=== PATIENT | female | born 1960 | race Caucasian/White ===

== ENCOUNTER → 2019-09-30 18:59 | Outpatient (CLI) | payer MEDICAID, SELFPAY ==
[2019-09-30 19:09] LABS: Basophils % 0.4 % (0.1-2.0); Eosinophils # 0.2 K/mm3 (0.0-0.4); Eosinophils % 1.6 % (0.1-12.0); Hematocrit 42.5 % (37.0-47.0); Hemoglobin 14.3 g/dL (12.2-16.2); Lymphocytes # 3.3 K/mm3 (0.7-4.5); Lymphocytes % 34.5 % (10-50); Mean Corpuscular HGB Conc 33.6 g/dL (31.8-35.4); Mean Corpuscular Hemoglobin 34.5 pg (27.0-31.2); Mean Corpuscular Volume 102.6 fl (81-99); Mean Platelet Volume 9.1 fl (7.4-10.4); Monocytes # 0.6 K/mm3 (0.1-1.0); Monocytes % 5.8 % (1.7-9.3); Neutrophils # 5.4 K/mm3 (1.8-7.8); Neutrophils % 57.7 % (37.0-80.0); Platelet Count 388 K/mm3 (142-424); Red Blood Count 4.14 M/mm3 (4.20-5.40); Red Cell Distribution Width 13.4 % (11.5-17.5); White Blood Count 9.4 K/mm3 (4.8-10.8)
[2019-09-30 19:13] LABS: Alanine Aminotransferase 26 U/L (12-78); Albumin Level 4.3 g/dl (3.5-5.0); Albumin/Globulin Ratio 1.6 (1.1-1.8); Alkaline Phosphatase 113 U/L (38-126); Anion Gap 12.7 mEq/L (5-15); Aspartate Amino Transferase 45 U/L (14-36); Bilirubin,Total 0.4 mg/dl (0.2-1.3); Blood Urea Nitrogen 17 mg/dl (7-17); Calcium 10.1 mg/dl (8.4-10.2); Carbon Dioxide 28 mmol/L (22.0-30.0); Chloride 101 mmol/L (98-107); Chol/HDL Ratio 2.1 (1-3.5); Cholesterol 218 mg/dl (140-200); Estimated Glomerular Filt Rate 73 ml/min (>60); GFR (African American) 89 ML/MIN (>60); Globulin 2.7 g/dL (1.3-3.2); Glucose 96 mg/dl (74-100); HDL Cholesterol 104 mg/dl (40-60); Potassium 4.7 mmoL/L (3.5-5.1); Sodium 137 mmol/L (136-145); Triglycerides 239 mg/dl (30-150); VLDL Cholesterol 48 mg/dL (0-40)
[2019-09-30 19:24] LABS: Direct LDL Cholesterol 98.73 mg/dL (100-129)
[2019-09-30 19:30] LABS: T4 (Thyroxine) 6.2 ug/dl (5.53-11.0)
[2019-09-30 19:44] LABS: Thyroid Stimulating Hormone 0.45 uIU/mL (0.465-4.68)
[2019-10-11 18:47] LABS: 1,25 Dihydroxy Vitamin D 94 pg/mL (.); 1,25-Dihydroxy, Vitamin D-2 13 pg/mL (.); 1,25-Dihydroxy, Vitamin D-3 81 pg/mL (.)
== END ==
PROVIDERS: Visit Provider Nurse Practitioner Family
DX: I10 Essential (primary) hypertension (principal); R53.83 Other fatigue; E67.3 Hypervitaminosis D; Z79.899 Other long term (current) drug therapy
CPT/HCPCS: 80053; 80061; 82652; 84436; 84443; 85025

== ENCOUNTER → 2020-01-25 09:39 | Outpatient (CLI) | payer MEDICAID, SELFPAY ==
[2020-01-25 12:42] LABS: Coronavirus 19 IgG Antibody Negative (Negative); Coronavirus 19 IgM Antibody Negative (Negative)
== END ==
PROVIDERS: Visit Provider Surgery
DX: Z01.818 Encounter for other preprocedural examination (principal); Z03.818 Encounter for observation for suspected exposure to other biological agents ruled out; Z12.11 Encounter for screening for malignant neoplasm of colon; Z86.010 Personal history of colon polyps
CPT/HCPCS: 36415; 86328

== ENCOUNTER 2020-01-26 09:30 | Day surgery (SDC) | payer MEDICAID, SELFPAY ==
[2020-01-26 09:46] VITALS: BP 136/65; PULSE 69; RESP 18; TEMP 36.6; O2SAT 100
--- NOTE | 2020-01-26 10:38 | HMH.ANESCL ---
[facility] Anesthesia Checklist - Patient Identification Patient Identification: Arm Band, Verbal (Name & ) - Structural Data Admitted From: Home Planned Operative Procedure/s: colon Consent for Planned Operative Procedure(s) Verified: Yes Verified Documents: History and Physical - NPO Status Verified Time NPO: 00:00 - Chart Verification Results Verified: CBC, BMP - Additional verifications Patient : No Anesthesia Reactions: No Hx Blood Transfusions: No Blood Transfusion Reaction: No Cephalosporin Allergy: No Previous Colonoscopy: Yes - Cardiovascular Assessment Heart Sounds: S1 & S2 Pulse Strength: Baseline Pulse Rhythm: Regular Peripheral Edema: No - Airway Assessment C-Spine Mobility Assessed: Yes TMJ Mobility Assessed: Yes Dentition: Dentures-good fit - Neurological Assessment Level of Consciousness: Awake, Alert, Appropriate Hx Seizures: No Numbness or tingling in extremities: No - Anesthesia Plan Anesthesia Risk discussed: Yes Anesthesia Plan: Verified ASA Class: III Anesthesia Type: General [facility] History I have reviewed the patient's past medical history: Yes Medical History: Reports:: Cancer (breast right 2006), Depression, Hyperlipidemia, Hypertension Denies:: Diabetes Mellitus Type 1, Diabetes Mellitus Type 2, Internal Pacemaker, MRSA, Seizures *Have you ever received a pneumonia vaccine?: No *Have you received a flu vaccine this season?: No Anesthesia experience/problems:: none Laterality Cases: Right: Arthroscopy Shoulder, Lumpectomy Other Surgeries: Yes: Appendectomy, Colonoscopy, Tubal Ligation, Other. No: Pacemaker Amputation: No Fractures: No - *Social History Smoking Status: Current some day smoker Tobacco Type: cigarettes, e-cigarettes # Packs/Day (cigarettes): 1 Alcohol Intake: never Alcohol Intake Frequency:: holidays/special occasions only Substance Use Type: denies use *Occupational Status:: employed Household Members: spouse *Travel in the last 8 weeks: None - Psychiatric History Pschychiatric History:: Reports:: Depression Family Hx:: Non-contributory
[2020-01-26 10:43] VITALS: O2SAT 100
[2020-01-26 12:16] VITALS: BP 156/85; PULSE 71; RESP 18; TEMP 36.1; O2SAT 100
--- NOTE | 2020-01-26 12:17 | HMH.SCOPE ---
- Procedure: Date: 01/26/20 Patient Date of :: 1960 Procedure Performed:: Total colonoscopy with numerous polypectomy Indications:: Patient is a 59-year-old female referred by Selvin Moran for screening colonoscopy. She did have a colonoscopy done about 15 years ago in [facility]. She does state that she had polyps. She has no issues. She does state that her aunt of colon cancer. Performing Provider:: Nelson Rene MD Referring Provider:: Tonia Moran Sedation:: MAC sedation Procedure:: Patient was taken to the endoscopy procedure room. She was positioned in a lateral decubitus position. Adequate intravenous sedation was achieved with anesthesia titration of propofol. Variable stiffness Olympus colonoscope was inserted via the anus. With some difficulty due to angulation and tortuosity of the sigmoid colon the colonoscope was ultimately advanced to the cecum and the cecum was cannulated. Ileocecal valve was clearly identified. Colonoscope was slowly withdrawn through the colon with careful surveillance. Numerous polyps were encountered. Much of these were sessile ridge polyps consistent with possible serrated adenomas. Please see findings below for details. Retroflexion within the rectum revealed internal anal papillae but no pathologic internal hemorrhoids. Colonoscope was withdrawn. Please note total procedure time 1 hour 25 minutes from insertion to withdrawal of the colonoscope Findings:: Ascending colon polyp removed with cold cutting snare, not retrieved Hepatic flexure polyp x2 removed with cold cutting snare Proximal transverse colon polyp removed with biopsy Transverse colon polyp x4 removed with cold cutting snare Descending colon polyp x2 required injection of submucosal methylene blue and removal with cold cutting snare Proximal sigmoid polyp x2 removed with cold cutting snare Mid sigmoid polyp removed with cold biopsy forceps Distal sigmoid colon polyp x2 removed with cold cutting snare Distal rectosigmoid colon polyps removed by snare, several not retrieved Rectal polyp x3 removed with cold snare She had a total of greater than 20 polyps removed. A few of these were unable to be retrieved due to the large number of polyps and anatomy. Recommendations:: Pending the pathology likely repeat colonoscopy in 1 year Complications:: None immediately apparent Estimated blood obtained (mL): 3
[2020-01-26 12:26] VITALS: BP 144/82; PULSE 70; RESP 18; O2SAT 98
[2020-01-26 12:40] VITALS: BP 142/79; PULSE 71; RESP 18; O2SAT 95
[2020-01-26 12:50] VITALS: BP 156/90; PULSE 67; RESP 18; O2SAT 98
== END 2020-01-26 12:53 | disposition home or self-care (01) ==
LOC: OUTP 09:31
PROVIDERS: PCP Nurse Practitioner Family; Visit Provider Surgery
PROC: 0DJD8ZZ Inspection of Lower Intestinal Tract, Via Natural or Artificial Opening Endoscopic (ICD-10-PCS; CPT 45385; principal; 2020-01-26 10:30)
DX: Z12.11 Encounter for screening for malignant neoplasm of colon (principal); Z86.010 Personal history of colon polyps; K63.5 Polyp of colon; K56.2 Volvulus; Z85.3 Personal history of malignant neoplasm of breast; I10 Essential (primary) hypertension; E78.5 Hyperlipidemia, unspecified; F32.9 Major depressive disorder, single episode, unspecified; Z90.49 Acquired absence of other specified parts of digestive tract; Z72.0 Tobacco use; Z88.0 Allergy status to penicillin; Z79.899 Other long term (current) drug therapy
CPT/HCPCS: 45385; 45380

== ENCOUNTER → 2020-04-26 07:15 | Outpatient (CLI) | payer OTHER, SELFPAY ==
--- NOTE | 2020-04-26 | CA_ITS ---
APPROVED REPORT Exam: Pharmacologic Technologist: Catalina Qiu, Ht: 5 ft 4 in Wt: 156 lbs BSA: 1.76 m2 HR: 75 bpm BP: 137/74 mmHg Indications: Shortness of Air, chest pain Medical History Medications: Amlodipine,,,,, Metoprolol,,,,, FluTICASONE,,,,, Trazodone,,,,, CetIRIZINE,,,,, Stress Test Details Test: LEXISCAN HR Resting HR: 80 bpm Max Heart Rate (APMHR): 161.058931 bpm Max HR Achieved: 90 bpm Target HR (85% APMHR): 136.586746 bpm % of APMHR: 55.90 Recovery HR: 80 bpm BP Resting BP: 137/74 mmHg Max BP: 137/74 mmHg Recovery BP: 104.0/67.0 mmHg ECG Clinical Reason for Termination: Completed protocol Exercise duration: 04:00 min Highest Stage Achieved: Exercise capacity: 1.0 METs Stress ECG Conclusion Symptom - SOA, Malaise and no chest pain. NO arrhythmias. No significant ST -T changes. Conclusion - Unremarkable Lexiscan stress. and myoview images reported separately. Electronically signed by : Jose Bryan, 04/26/2020 19:44:58
--- NOTE | 2020-04-26 07:16 | CA_ITS ---
APPROVED REPORT EXAM: Comprehensive 2D, Doppler, and color-flow Echocardiogram Insurance Verifier: Tiesha Suggs, RT(R) Ht: 5 ft 4 in Wt: 156lbs BSA: 1.76 BP: 112/74 mmHg Indications: SOA, CP, smoker, HTN, family history of HD, hx malignant breast ca 2D Dimensions LVOT 1.90 cm (M/F) 1.5-2.5 M-Mode Dimensions RVDd 2.50 cm (0.9-2.6) LA Diam 3.70 cm (1.9-4.0) LVDd 5.10 cm (3.5-5.7) Ao Diam 2.70 cm (2.0-3.7) LVDs 3.30 cm (3.5-5.7) AV Cusp 1.70 cm (1.5-2.6) IVSd 0.80 cm (0.6-1.1) PWd 1.00 cm (0.6-1.1) EF (Teich) 64.40% FS 35.30% EDV (Teich) 124.00 mL ESV (Teich) 44.10 mL LV Diastology E/A Ratio 1.2 MED E' 8.58 (< 7 cm/sec) E'/MED E' Ratio 13.20 (>14) LAT E' 9.75 (<10 cm/sec) E/LAT E' Ratio 11.60 (>14) Mitral Valve MV E Max Madan. 113.00 (40-130 cm/s) MV A Velocity 94.30 (40-130 cm/s) E/A Ratio 1.20 Tricuspid Valve TR P. Velocity 247.00 cm/s RAP Estimate 10.00 mmHg RVSP 34.00 mmHg Left Ventricle Left atrium is normal size, left ventricle is normal size, there is no concentric left ventricular hypertrophy, visually estimated ejection fraction 55% with no regional wall motion abnormality, diastolic parameters are within normal range. Right Ventricle Right atrium and right ventricle are normal size and contractility. Aortic Valve Aortic valve is minimally thickened and fibrosed, there is no aortic stenosis or aortic insufficiency. Mitral Valve Mitral valve is grossly normal, there is trace mitral regurgitation. Tricuspid Valve Tricuspid grossly normal, there is trace tricuspid regurgitation. Pulmonic Valve Pulmonic valve is poorly visualized. Great Vessels Aortic root is normal size. Pericardium No significant pericardial effusion noted. Conclusion 1. Normal left ventricular size, preserved left ventricular systolic function, visually estimated ejection fraction 55% with no regional wall motion abnormality, diastolic parameters are within normal range. 2. Trace mitral and tricuspid regurgitation. 3. No significant pericardial effusion noted. Electronically signed by : Jose Bryan, 04/26/2020 21:47:53
--- NOTE | 2020-04-26 07:21 | NM_ITS ---
APPROVED REPORT Exam: Nuclear Stress Test Indication: Chest pain, HTN, Tobacco use, Family history Patient Location: Outpatient Stress Tech: Catalina Qiu NM Tech:Jing Arango, ARRT, RT (R)(N) Ht: 5 ft 4 in Wt: 156 lbs Bra Size: 36B HR: 75 bpm BP: 137/74 mmHg BSA: 1.76 m2 BMI: 26.7 History: Chest pain, HTN, Tobacco use, Family history Procedure: Patient received a 0.4 mg of intravenous Lexiscan, resting heart rate 75 bpm, resting blood pressure 137/74 mmHg, with Lexiscan maximum heart rate achived was 90 bpm which is Less than 85 % of the maximum predicted heart rate and blood pressure was 108/73 mmHg. With Lexiscan, patient denied any complaint of chest pain. Electrocardiogram Resting electrocardiogram showed sinus rhythm, with Lexiscan there is less than 1.[address] segment depression noted from the baseline EKG. The EKG portion of the Lexiscan is nondiagnostic. Cardiac Stress and Resting SPECT Images: Cardiac Stress and Resting SPECT images were obtained using technetium 99m Myoview 30.0 mCi stress and 10.58 mCi at rest. Gated SPECT for analysis of segmental wall motion and calculation of the ejection fraction also done. Prone images were also obtained. Cardiac stress and resting SPECT images show uniform myocardial activity without segmental perfusion abnormality, computer derived ejection fraction is over 65% with no regional wall motion abnormality, right ventricle is normal size and contractility. Conclusion: 1. The EKG portion of the Lexiscan is nondiagnostic. 2. No scintigraphic evidence of reversible ischemia seen, computer derived ejection fraction is over 65% with no regional wall motion abnormality, right ventricle is normal size and contractility. 3. Normal Lexiscan Myoview study. Electronically signed by : Jose Bryan, 04/26/2020 19:54:46
--- NOTE | 2020-04-26 08:58 | HMH.ITSHM ---
Current Home Medications as stated by this patient Ana Vazquez or congressional representative. []METOPROLOL AMLODIPINE CETIRIZINE TRAZODONE
== END ==
PROVIDERS: PCP Nurse Practitioner Family; Visit Provider Nurse Practitioner Family
DX: R07.9 Chest pain, unspecified (principal)
CPT/HCPCS: 78452; 93017; 93306; A9502; J2785

== ENCOUNTER → 2021-11-20 12:14 | Outpatient (CLI) | payer BC, SELFPAY ==
--- NOTE | 2021-11-20 12:22 | XR_ITS ---
FINAL REPORT CLINICAL HISTORY: low back pain. no recent trauma/fall FINDINGS: LUMBAR SPINE Three views were obtained. There is no acute fracture. There is no malalignment. There are mild degenerative changes with osteophytes. There are mild vascular calcifications. IMPRESSION: Mild degenerative change with no acute bony abnormality. Reviewed, Interpreted and Dictated by Nelson Lobo III, MD Transcribed by Selina Greene Authenticated and . [facility]
== END ==
PROVIDERS: PCP Emergency Medicine; Visit Provider Student in an Organized Health Care Education/Training Program
DX: M54.50 Low back pain, unspecified (principal)
CPT/HCPCS: 72100

== ENCOUNTER 2021-12-06 15:30 | Outpatient (RCR) | payer BC, SELFPAY | END 2021-12-06 15:35 | disposition home or self-care (01) | LOC: PT 15:30 | PROVIDERS: PCP Emergency Medicine; Visit Provider Student in an Organized Health Care Education/Training Program | DX: M54.50 Low back pain, unspecified (principal); M54.2 Cervicalgia | CPT/HCPCS: 97010; 97014; 97110; 97163; G0283 ==

== ENCOUNTER → 2021-12-07 14:23 | Outpatient (CLI) | payer BC, SELFPAY ==
[2021-12-07 18:06] LABS: Alanine Aminotransferase 20 U/L (12-78); Albumin Level 4.2 g/dl (3.5-5.0); Albumin/Globulin Ratio 1.8 (1.1-1.8); Alkaline Phosphatase 86 U/L (38-126); Anion Gap 17.2 mEq/L (5-15); Aspartate Amino Transferase 39 U/L (14-36); Bilirubin,Total 0.4 mg/dl (0.2-1.3); Blood Urea Nitrogen 11 mg/dl (7-17); Calcium 9.2 mg/dl (8.4-10.2); Carbon Dioxide 22 mmol/L (22.0-30.0); Chloride 102 mmol/L (98-107); Cholesterol 239 mg/dl (140-200); Estimated Glomerular Filt Rate 125 ml/min (>60); GFR (African American) 152 ML/MIN (>60); Globulin 2.4 g/dL (1.3-3.2); Glucose 82 mg/dl (74-100); HDL Cholesterol 79 mg/dl (40-60); Potassium 4.2 mmoL/L (3.5-5.1); Sodium 137 mmol/L (136-145); Total Protein,Serum 6.6 g/dl (6.3-8.2); Triglycerides 102 mg/dl (30-150); VLDL Cholesterol 20 mg/dL (0-40)
[2021-12-07 18:17] LABS: Direct LDL Cholesterol 128.89 mg/dL (100-129)
[2021-12-07 18:24] LABS: 25-OH Vitamin D, Total < 12.8 ng/mL (30-100)
[2021-12-07 18:27] LABS: Basophils # 0.1 K/mm3 (0-0.2); Basophils % 1.2 % (0.1-2.0); Eosinophils # 0.1 K/mm3 (0.0-0.4); Eosinophils % 1.2 % (0.1-12.0); Hematocrit 44.5 % (37.0-47.0); Hemoglobin 14.4 g/dL (12.2-16.2); Lymphocytes # 2.6 K/mm3 (0.7-4.5); Lymphocytes % 34.1 % (10-50); Mean Corpuscular HGB Conc 32.4 g/dL (31.8-35.4); Mean Corpuscular Hemoglobin 33.3 pg (27.0-31.2); Mean Corpuscular Volume 102.7 fl (81-99); Mean Platelet Volume 9.1 fl (7.4-10.4); Monocytes # 0.5 K/mm3 (0.1-1.0); Monocytes % 6.5 % (1.7-9.3); Neutrophils # 4.3 K/mm3 (1.8-7.8); Neutrophils % 56.9 % (37.0-80.0); Platelet Count 383 K/mm3 (142-424); Red Blood Count 4.33 M/mm3 (4.20-5.40); Red Cell Distribution Width 13.8 % (11.5-17.5); White Blood Count 7.6 K/mm3 (4.8-10.8)
[2021-12-07 19:00] LABS: Erythrocyte Sedimentation Rate 14 mm/hr (0-30)
[2021-12-07 19:39] LABS: Hemoglobin A1C 5.2 % (4.0-6.0)
== END ==
PROVIDERS: PCP Student in an Organized Health Care Education/Training Program; Visit Provider Student in an Organized Health Care Education/Training Program
DX: I10 Essential (primary) hypertension (principal); R53.83 Other fatigue; M54.50 Low back pain, unspecified; E55.9 Vitamin D deficiency, unspecified; Z83.3 Family history of diabetes mellitus
CPT/HCPCS: 80053; 80061; 82306; 83036; 84443; 85025; 85651; 86140

== ENCOUNTER → 2022-02-05 14:19 | Outpatient (CLI) | payer BC, SELFPAY ==
--- NOTE | 2022-02-05 14:20 | CA_ITS ---
FINAL REPORT TECHNIQUE: Color Doppler, duplex Doppler and benavides scale sonography of the bilateral neck arterial vasculature was performed. Velocities were measured in the carotid arteries. Stenosis evaluation based on the validated velocity criteria. CLINICAL HISTORY: bilateral numbess and tingling, htn, smoker FINDINGS: The peak systolic velocity of the right common carotid artery is 92 cm/s. The peak systolic velocity of the right internal carotid artery is 88 cm/s and end diastolic velocity 35 cm/s. The ICA/CCA ratio is 0.96. A mild amount of plaque is present. The right external carotid artery is patent. The right vertebral artery is patent with antegrade flow. The peak systolic velocity of the left common carotid artery is 79 cm/s. The peak systolic velocity of the left internal carotid artery is 76 cm/s and end diastolic velocity 27 cm/s. The ICA/CCA ratio is 0.96. A mild amount of plaque is present. The left external carotid artery is patent.The left vertebral artery is patent with antegrade flow. IMPRESSION: Less than 50% bilateral carotid stenoses. Bilateral patent vertebral arteries with antegrade flow. If indicated, CTA or MRA could further evaluate. Reviewed, Interpreted and Dictated by Nelson Lobo III, MD Transcribed by Selian Greene Authenticated and [facility]
== END ==
PROVIDERS: PCP Emergency Medicine; Visit Provider Emergency Medicine
DX: R20.0 Anesthesia of skin (principal); R20.2 Paresthesia of skin
CPT/HCPCS: 93880

== ENCOUNTER 2022-02-16 10:59 | Day surgery (SDC) | payer BC, SELFPAY ==
[2022-02-13 09:32] VITALS: BMI 23.9
[2022-02-16 11:23] VITALS: BP 145/85; PULSE 80; RESP 16; TEMP 36.3; O2SAT 96
--- NOTE | 2022-02-16 12:59 | EXP.ANES.CKL ---
[facility] Disclaimer: The information contained in this section may have been updated after the patient was seen, as this information can be updated by other users. Medical History Allergies Breast cancer History of colon polyps Hx of malignant neoplasm of breast Hypertension Insomnia Sleep apnea Surgical History (Updated 02/16/22 @ 11:19 by Taylor Valdez RN) H/O tubal ligation History of appendectomy History of lumpectomy History of surgery on arm Family History Other Family history of cancer Family history of diabetes mellitus type II Family history of myocardial infarction Social History Smoking Status: Current some day smoker tobacco type: cigarettes packs per day: 1 and e-cigarettes alcohol intake: current substance use type: denies use current occupational status: employed Travel in the last 8 weeks: None household members: spouse 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 [facility] Anesthesia Checklist Patient Identification Patient Identification: Arm Band Structural Data Admitted From: Home Planned Operative Procedure/s: colonoscopy Consent for Planned Operative Procedure(s) Verified: Yes Verified Documents: Surgical Consent and History and Physical NPO Status Verified Time NPO: 00:00 Additional verifications Anesthesia Reactions: No Hx Blood Transfusions: No Blood Transfusion Reaction: No Airway Assessment C-Spine Mobility Assessed: Yes TMJ Mobility Assessed: Yes Dentition: Poor Dentition Neurological Assessment Level of Consciousness: Awake and Alert Anesthesia Plan Anesthesia Risk discussed: Yes Anesthesia Plan: Verified ASA Class: II Anesthesia Type: MAC
[2022-02-16 13:00] VITALS: O2SAT 96
--- NOTE | 2022-02-16 14:13 | P.PCN_ITS ---
Procedure: Date: 02/16/22 Patient Date of :: 1960 Procedure Performed:: Total colonoscopy with polypectomy using snare and biopsy forceps Indications:: Patient is a 61-year-old female with multiple chronic medical conditions. I had seen her and performed colonoscopy on 01/26/2020 for screening. She does have somewhat of a vague family history of colon cancer in her aunt. Colonoscopy performed on 01/26/2020 revealed some difficulty in advancement of the colonoscope beyond the rectosigmoid due to tortuosity and angulation likely from chronic disease. Procedure duration at that time was 1 hour 25 minutes. She had a total of 20 polyps removed by a variety of technique. At that time she had 8 sessile serrated adenomas and a tubular adenoma. There were multiple hyperplastic polyps. I had recommended a follow-up colonoscopy in 1 year. Patient presents for follow-up colonoscopy 2 years after previous colonoscopy. Performing Provider:: Nelson Rene MD Referring Provider:: Steve Grigsby Sedation:: MAC sedation Procedure:: Patient history was obtained and appropriate physical examination was performed. Patient's medications and allergies were reviewed. Informed consent was obtained after explaining the benefits, alternatives, and risks of the procedure including, but not limited to, bleeding, perforation, missed lesions, and adverse reaction to anesthesia medications. Patient was transported to endoscopy procedure room. Patient was connected to monitoring devices. Throughout the procedure the patient's blood pressure, pulse, and oxygen saturations were monitored continuously. Patient identification and planned procedure were verified by the staff. Patient was positioned in lateral decubitus position. Digital anorectal exam was performed. Variable stiffness Olympus colonoscope was inserted and advanced under direct visualization to the cecum. Adequacy of the colonic preparation was noted. The colonoscope was unable to be advanced into the terminal ileum. The colonoscope was then slowly withdrawn while carefully examining the color, texture, anatomy, and integrity of the mucosoa circumferentially. Within the rectum retroflexion was performed. Colonoscope was then withdrawn. Findings:: It was extremely difficult to advance the colonoscope due to significant tortuosity, angulation, and redundancy of the colon. Colonic preparation was very poor. This could not be fully cleared. Ultimately the cecum was encountered. Colonoscope was withdrawn through the colon with thorough irrigation. Colonic preparation was extremely poor with liquid stool with some undigested food matter. In the transverse colon there is a small polyp removed with snare. In the descending colon there was a polyp removed with cold snare. In the sigmoid colon there is diminutive polyp removed with biopsy forceps. Rectosigmoid region there were polyp removed with snare. Rectal polyp x3 removed with biopsy. Retroflexion revealed some minor internal hemorrhoids. Impression: Polyps as noted above. At least 7 polyps removed Extremely poor colonic preparation unable to be cleared Significant tortuosity, angulation, redundancy of the colon Recommendations:: Recommend repeat colonoscopy within 1 year with likely multi day prep and actually clear liquid diet the day before. This may be be best served by technical support representative due to the technical difficulty with her colonic anatomy Complications:: None immediately apparent Estimated blood obtained (mL): 2
[2022-02-16 14:19] VITALS: BP 139/77; PULSE 68; RESP 14; TEMP 36.5; O2SAT 97
[2022-02-16 14:29] VITALS: BP 136/77; PULSE 71; RESP 16; O2SAT 96
[2022-02-16 14:39] VITALS: BP 125/78; PULSE 75; RESP 16; O2SAT 98
[2022-02-16 14:49] VITALS: BP 126/76; PULSE 75; RESP 16; TEMP 36.6; O2SAT 98
== END 2022-02-16 14:50 | disposition home or self-care (01) ==
PROVIDERS: PCP Emergency Medicine; Visit Provider Surgery
PROC: 0DJD8ZZ Inspection of Lower Intestinal Tract, Via Natural or Artificial Opening Endoscopic (ICD-10-PCS; CPT 45380; principal; 2022-02-16 12:00)
DX: Z12.11 Encounter for screening for malignant neoplasm of colon (principal); K63.5 Polyp of colon; Z86.010 Personal history of colon polyps; Z80.0 Family history of malignant neoplasm of digestive organs; Z91.199 Patient's noncompliance with other medical treatment and regimen due to unspecified reason; Z79.899 Other long term (current) drug therapy; F17.210 Nicotine dependence, cigarettes, uncomplicated
CPT/HCPCS: 45380; 45385; J2704

== ENCOUNTER → 2022-03-30 13:53 | Outpatient (CLI) | payer BC, SELFPAY ==
--- NOTE | 2022-03-30 13:57 | XR_ITS ---
FINAL REPORT CLINICAL HISTORY: elbow pain COMPARISON: none FINDINGS: AP, oblique, and lateral views of the left elbow were obtained. There is no prior exam for comparison. There is no acute fracture or dislocation. Joint space is preserved. There is no joint effusion or other soft tissue abnormality. IMPRESSION: No acute osseous abnormality of the right elbow. Reviewed, Interpreted and Dictated by Lanie Gomez MD Transcribed by Dang Schulz Authenticated and [facility]
== END ==
PROVIDERS: PCP Emergency Medicine; Visit Provider Orthopaedic Surgery
DX: M25.522 Pain in left elbow (principal)
CPT/HCPCS: 73080

== ENCOUNTER 2022-05-01 11:00 | Outpatient (RCR) | payer BC, SELFPAY ==
--- NOTE | 2022-04-17 11:51 | HMH.PTOPEV ---
PT Outpatient Evaluation Rehab PT Outpatient Evaluation Start: 04/17/22 10:58 Freq: Status: Active Protocol: Document 04/17/22 10:58 PDESEROUX (Rec: 04/17/22 11:51 [email or web address] [id number]) E-signed By Jourdan Ansari, PT Outpatient Therapy Subjective History Subjective History Pt. is a 61 year old female whom presents to [facility] in [place] for the initial evaluation this date( 04/17/22) w/ c/o subacute and constant LUE elbow/forearm/4th and 5th digit numbness and weakness of insidious onset 2- 3 months ago. Pt. reports taking as shower and elevating her LUE are up to wash her hair when symptoms onset began . However, pt. was told neuritis had been going on longer than 2-3 months symptom onset after a positive finding of NVS. Pt. vocalizes having a radiograph of the LUE elbow taken. Pt. reports having difficulties taking off the lids of jars since symptom onset. Pt. vocalizes nothing improves the numbness . Pt. RTMD 04/27/22. Current medications include Baby Aspirin, Amlodipine, Amitriptyline, Vit. D, and Zoloft. PMH includes Hypertension, Anxiety disorder , Lumpectomy, Appendectomy, Tubal Ligation, and S/P RUE lateral epicondylitis surgery x 2. 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
== END 2022-05-25 07:20 | disposition home or self-care (01) ==
LOC: PT 11:00
PROVIDERS: PCP Emergency Medicine; Visit Provider Orthopaedic Surgery
DX: G56.20 Lesion of ulnar nerve, unspecified upper limb (principal)
CPT/HCPCS: 97033; 97035; 97110; 97140; 97163

== ENCOUNTER → 2022-06-22 12:18 | Outpatient (CLI) | payer BC, SELFPAY ==
--- NOTE | 2022-06-22 12:44 | XR_ITS ---
FINAL REPORT CLINICAL HISTORY: HTN,SOA FINDINGS: There is no evidence of effusion or other pleural disease. The mediastinum has a normal appearance. The cardiac silhouette is unremarkable. IMPRESSION: Unremarkable chest exam. Authenticated and [facility]
[2022-06-22 13:01] LABS: Basophils # 0.1 K/mm3 (0-0.2); Basophils % 0.7 % (0.1-2.0); Eosinophils # 0.2 K/mm3 (0.0-0.4); Eosinophils % 1.8 % (0.1-12.0); Hematocrit 44.4 % (37.0-47.0); Hemoglobin 14.6 g/dL (12.2-16.2); Lymphocytes # 2.8 K/mm3 (0.7-4.5); Lymphocytes % 30.8 % (10-50); Mean Corpuscular HGB Conc 32.9 g/dL (31.8-35.4); Mean Corpuscular Hemoglobin 34.7 pg (27.0-31.2); Mean Corpuscular Volume 105.3 fl (81-99); Mean Platelet Volume 7.8 fl (7.4-10.4); Monocytes # 0.5 K/mm3 (0.1-1.0); Monocytes % 4.9 % (1.7-9.3); Neutrophils # 5.6 K/mm3 (1.8-7.8); Neutrophils % 61.7 % (37.0-80.0); Platelet Count 349 K/mm3 (142-424); Red Blood Count 4.22 M/mm3 (4.20-5.40); Red Cell Distribution Width 13.4 % (11.5-17.5); White Blood Count 9.1 K/mm3 (4.8-10.8)
--- NOTE | 2022-06-22 13:03 | ECG_ITS ---
APPROVED REPORT Exam: Resting ECG HR:61 bpm ECG Measurements Heart Rate 61 AXES VA 201 P 75 QRSd 101 QRS 69 QT 401 T 72 QTc 405 Conclusion SINUS RHYTHM NORMAL ECG UNCONFIRMED REPORT Electronically signed by : Camacho Leon MD 06/22/2022 14:59:45
[2022-06-22 13:26] LABS: Anion Gap 15.6 mEq/L (5-15); Blood Urea Nitrogen 10 mg/dl (7-17); Calcium 9.4 mg/dl (8.4-10.2); Carbon Dioxide 31 mmol/L (22.0-30.0); Chloride 98 mmol/L (98-107); Estimated Glomerular Filt Rate 125 ml/min (>60); GFR (African American) 152 ML/MIN (>60); Glucose 109 mg/dl (74-100); Potassium 4.6 mmoL/L (3.5-5.1); Sodium 140 mmol/L (136-145)
== END ==
PROVIDERS: PCP Emergency Medicine; Visit Provider Orthopaedic Surgery
DX: Z01.818 Encounter for other preprocedural examination (principal); Z87.898 Personal history of other specified conditions; R73.09 Other abnormal glucose
CPT/HCPCS: 36415; 71046; 80048; 83036; 85025; 93005

== ENCOUNTER → 2022-07-03 10:45 | Outpatient (CLI) | payer BC, SELFPAY ==
--- NOTE | 2022-07-03 10:45 | US_ITS ---
FINAL REPORT TECHNIQUE: Sonographic images were obtained of the retroperitoneum. CLINICAL HISTORY: I10 - Essential (primary) hypertension FINDINGS: The right kidney measures 10.5 cm. The left kidney measures 9.8 cm. There is no evidence of renal mass or hydronephrosis. The spleen is obscured by bowel gas. IMPRESSION: No acute process. Reviewed, Interpreted and Dictated by Nelson Lobo III, MD Transcribed by Nima Stone Authenticated and [facility]
== END ==
PROVIDERS: PCP Emergency Medicine; Visit Provider Emergency Medicine
DX: I10 Essential (primary) hypertension (principal)
CPT/HCPCS: 76770

== ENCOUNTER → 2022-11-08 14:08 | Outpatient (CLI) | payer BC, SELFPAY ==
--- NOTE | 2022-11-08 14:09 | MR_ITS ---
FINAL REPORT TECHNIQUE: Multiplanar and multisequence imaging of the lumbar spine was obtained without contrast. CLINICAL HISTORY: back pain x years. worse on left side. no injury or trauma FINDINGS: There is normal alignment of the lumbar vertebral bodies. Vertebral body height is preserved. The spinal cord ends at the level of T12-L1. There is normal signal intensity within the substance of the distal spinal cord. No acute bone marrow edema or pathologic marrow replacement. No acute paraspinal abnormality is identified. L1-2: There is no focal disc herniation, central canal stenosis or neuroforaminal narrowing. L2-3: There is no focal disc herniation, central canal stenosis or neuroforaminal narrowing. L3-4: Annular disc bulge is present with mild facet osteoarthropathy. No canal stenosis or neural foraminal narrowing. L4-5: Annular disc bulge is present with facet osteoarthropathy. No canal stenosis or neural foraminal narrowing. L5-S1: There is no focal disc herniation, central canal stenosis or neuroforaminal narrowing. IMPRESSION: Degenerative disc disease without canal stenosis or neural foraminal narrowing. Reviewed, Interpreted and Dictated by Lanie Gomez MD Transcribed by Eulalia Madsen Authenticated and . [facility]
== END ==
LOC: RAD 14:08
PROVIDERS: PCP Emergency Medicine
DX: M54.50 Low back pain, unspecified (principal)
CPT/HCPCS: 72148; 76376

== ENCOUNTER 2022-11-12 13:30 | Outpatient (RCR) | payer BC, SELFPAY ==
--- NOTE | 2022-10-31 15:08 | HMH.PTOPEV ---
PT Outpatient Evaluation Rehab PT Outpatient Evaluation Start: 10/31/22 12:52 Freq: Status: Active Protocol: Document 10/31/22 12:53 JEF (Rec: 10/31/22 15:07 JEF [id number]) E-signed By Vika Lorenzana, PT Outpatient Therapy Subjective History Subjective History Pt is a 62 y/o female who reports chronic low back pain for 3 years. Pt denies trauma or injury. Pt reports intermittent sharp, shooting pain into the left posterior hip. Pt denies distal LE symptoms or numbness/tingling. Pt reports she is scheduled to get a MRI of her lumbar spine next and has not had imaging of her low back since last year. Pt reports she tried PT last year and it caused worsening of pain and onset of right-sided low back pain so they referred her back to her doctor. Pt reports she has been prescribed Gabapentin and steroids in the past which did not help with her pain. Pt also reports she took muscle relaxers in the past which caused complete loss of bowel/ bladder function that resolved once she stopped taking them. Pt reports only increased urgency to urinate now. Pt denies fevers, night sweats, or n/v. Medical History: high blood pressure Negative myoclonus New diagnosis of cancer in past 12 No: breast cancer in 2007 months? Chief Complaint Pain Symptom Type Ache,Sharp,Dull,Shooting Symptoms Relieved By Nothing Symptoms Aggravated By Sitting,Standing,Physical Activity,Walking,Lifting, Sneeze/Coughing Prior Functional Limitations None Current Functional Limitations Lifting,Sleeping,Standing, Walking,Stairs,Balance Symptom Description Intermittent Level of pain today (0-10) 8 Pain scale - at its best (0-10) 0 Pain scale - at its worst (0-1
== END 2022-11-12 13:35 | disposition home or self-care (01) ==
LOC: PT 13:30
DX: M54.16 Radiculopathy, lumbar region (principal); R29.818 Other symptoms and signs involving the nervous system
CPT/HCPCS: 97010; 97014; 97110; 97163; 97530; G0283

== ENCOUNTER 2023-03-05 13:00 | Outpatient (RCR) | payer BC, SELFPAY | END 2023-04-10 07:50 | disposition home or self-care (01) | LOC: PT 13:00 | PROVIDERS: Visit Provider Orthopaedic Surgery | DX: G56.22 Lesion of ulnar nerve, left upper limb (principal) | CPT/HCPCS: 97110; 97163 ==

== ENCOUNTER → 2023-03-11 09:56 | Outpatient (POV) | payer BC, SELFPAY ==
--- NOTE | 2023-03-11 10:00 | EXP.PAIN.OV ---
HPI Data of Consult Patient: new to practice Consult date: 03/11/23 Requesting Physician: Vika Cheek APRN Primary Care Provider: Robbin Spangler DO Consult Narrative History of present illness: Ms. Vazquez is a 62 year old female who presents today as a new patient. She is a referral from [facility]. Today she rates her pain an 8 out of 10. Patient states her pain is all in her low back and left hip. Patient denies any radiating symptoms down into her legs. Patient does state this is been going on for approximately 4 years and has been fairly constant. Patient does describe this as high aching sensation that is worse with increased activity. Patient states that it is frequently aggravated with prolonged sitting or standing. Patient also states that she cannot do long car rides or steps without increased pain. Patient has tried Tylenol and ibuprofen along with heat and ice and topicals with minimal relief. Patient does state that she had physical therapy however this worsened her pain symptoms. She is interested in any help we may be able to provide. Patient has been tried on tramadol 50 mg and gabapentin 300 mg in the past from outside providers. Her Andrez has been reviewed and is appropriate. CC: Vika Cheek APRN [facility] Disclaimer: The information contained in this section may have been updated after the patient was seen, as this information can be updated by other users. Medical History (Updated 03/11/23 @ 10:38 by Vika Cheek APRN) Allergies Breast cancer Chest pain History of colon polyps Hx of malignant neoplasm of breast Hypertension Insomnia Shoulder pain Sleep apnea Surgical History H/O tubal ligation History of appendectomy History of colonoscopy History of lumpectomy History of surgery on arm Family History Other Family history of cancer Family history of diabetes mellitus type II Family history of myocardial infarction Social History (Updated 03/11/23 @ 10:02 by Candi Pineda RN) Smoking Status: Current some day smoker tobacco type: e-cigarettes alcohol intake: current substance use type: denies use current occupational status: employed Travel in the last 8 weeks: None household members: spouse 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 Review of Systems Review of Systems Review of systems:: pertinent systems reviewed and negative unless documented below Review of systems (narrative): Review of Systems: General: No recent weight changes, no fever, no sleep disturbances Respiratory: No cough, no shortness of air, no recurring pulmonary infections Cardiovascular/peripheral vascular: No chest pain, no palpitations, no edema, no shortness of breath Gastrointestinal: No new onset incontinence, normal bowel movements reported Genitourinary: No new onset incontinence Musculoskeletal: Low back pain, left hip pain Psychiatric: [Normal mood/affect] Neurological: [Denies weakness in extremities], [denies balance issues] Meds Home Medications and Allergies Home Medications Medication Instructions Recorded Confirmed Type epinephrine 0.3 mg/0.3 mL 0.3 mg (0.3 mL) IM Q5-15M PRN 07/26/20 02/05/23 Rx injection, auto-injector anaphylaxis #2 ea metoprolol tartrate 50 mg tablet 50 mg PO BID heart 90 days #180 09/07/21 02/05/23 Rx tabs aspirin 81 mg tablet,delayed 81 mg PO DAILY Heartburn 02/13/22 02/05/23 History release (Adult Low Dose Aspirin) cetirizine 10 mg tablet (Allergy See Rx Instructions .Route 02/13/22 02/05/23 History Relief (cetirizine)) .COMPLEX allergies fluticasone propionate 50 1 spray intranasal DAILY PRN 02/16/22 02/05/23 History mcg/actuation nasal ALLERGIES spray,suspension amlodipine 10 mg tablet See Rx Instructions .Route 12/20/22 02/05/23 Rx .COMPLEX #90 tabs sertraline 100 mg tablet See Rx Instructions .Route 12/20/22 02/05/23 Rx .COMPLEX #90 tabs cholecalciferol (vitamin D3) 25 See Rx Instructions .Route 02/05/23 02/05/23 Rx mcg (1,000 unit) capsule (Vitamin .COMPLEX #90 caps D3) trazodone 100 mg tablet 100 mg PO DAILY PRN Sleep #30 tabs 02/05/23 02/05/23 Rx New Prescriptions to Start Prescriptions: Allergies Allergy/AdvReac Type Severity Reaction Status Date / Time Penicillins Allergy Rash Verified 02/05/23 13:44 venom-wasp AdvReac Severe Anaphylaxis Verified 02/05/23 13:44 Objective Narrative: Physical Exam: General: Alert and oriented x3, no acute distress, pleasant and cooperative Lungs: Respirations even and unlabored, symmetrical chest expansion Eyes: PERRL Musculoskeletal: Flexion and extension of lumbar [spine] somewhat guarded secondary to pain, [antalgic gait noted] extreme point tenderness along left SI with positive left Warren's, Carol's, Gaenslen's, compression and distraction exam Neurological: Speech clear, no gross sensory deficit Additional findings Additional findings: TECHNIQUE: Multiplanar and multisequence imaging of the lumbar spine was obtained without contrast. CLINICAL HISTORY: back pain x years. worse on left side. no injury or trauma FINDINGS: There is normal alignment of the lumbar vertebral bodies. Vertebral body height is preserved. The spinal cord ends at the level of T12-L1. There is normal signal intensity within the substance of the distal spinal cord. No acute bone marrow edema or pathologic marrow replacement. No acute paraspinal abnormality is identified. L1-2: There is no focal disc herniation, central canal stenosis or neuroforaminal narrowing. L2-3: There is no focal disc herniation, central canal stenosis or neuroforaminal narrowing. L3-4: Annular disc bulge is present with mild facet osteoarthropathy. No canal stenosis or neural foraminal narrowing. L4-5: Annular disc bulge is present with facet osteoarthropathy. No canal stenosis or neural foraminal narrowing. L5-S1: There is no focal disc herniation, central canal stenosis or neuroforaminal narrowing. IMPRESSION: Degenerative disc disease without canal stenosis or neural foraminal narrowing. Reviewed, Interpreted and Dictated by Lanie Gomez MD Transcribed by Eulalia Madsen Authenticated and [facility] Assessment and Plan *Assessment and plan (1) Sacroiliitis: Status: Acute Category: Medical Code(s): M46.1 - Sacroiliitis, not elsewhere classified (2) Left hip pain: Status: Acute Category: Medical Code(s): M25.552 - Pain in left hip (3) Chronic SI joint pain: Status: Acute Category: Medical Code(s): M53.3 - Sacrococcygeal disorders, not elsewhere classified; G89.29 - Other chronic pain Plan Patient is experiencing chronic pain along her low back into the left hip. Patient did have extreme point tenderness of her left SI with a positive left Warren's, Carol's, Gaenslen's, compression and distraction exam. I discussed with the patient that she may benefit from a left SI injection. Risk and benefits were discussed with patient and she would like to proceed forward with this plan of care. I will also order the patient a compounded cream. Patient has tried and failed conservative therapy such as oral medications, heat and ice, topicals, physical therapy, at home stretching exercise for longer than 6 weeks. Patient will be scheduled for a left SI injection under fluoroscopy. Patient has been instructed to contact the clinic with any concerns before the next appointment. Dr. Warner has reviewed this note and agrees with this plan of care. This note was dictated using voice recognition software and make contain errors or omissions.
[2023-03-11 10:30] VITALS: BP 121/73; PULSE 67; RESP 18; O2SAT 96; BMI 22.4
== END ==
LOC: SC.PAIN 09:57
PROVIDERS: PCP Internal Medicine; Visit Provider Nurse Practitioner Family
DX: M46.1 Sacroiliitis, not elsewhere classified (principal); M25.552 Pain in left hip; M53.3 Sacrococcygeal disorders, not elsewhere classified; G89.29 Other chronic pain
CPT/HCPCS: 99202; G0463

== ENCOUNTER 2023-03-26 08:48 | Day surgery (SDC) | payer BC, SELFPAY ==
[2023-03-26 09:41] VITALS: BP 150/87; PULSE 65; RESP 18; TEMP 36.6; O2SAT 96; BMI 22.8
[2023-03-26] MEDS: BUPIVACAINE 0.25% 10ML INJ 25 MG IJ (09:54)
[2023-03-26] MEDS: LIDOCAINE 1% 5ML PF VIAL 5 ML (09:54)
[2023-03-26 09:55] VITALS: BP 150/87; PULSE 66; RESP 18; O2SAT 97
[2023-03-26] MEDS: methylPREDNISolone ACETATE 80MG/ML VIAL 80 MG (09:55)
[2023-03-26 09:56] VITALS: BP 150/87; PULSE 66; RESP 18; O2SAT 97
--- NOTE | 2023-03-26 10:05 | EXP.PAIN.PRO ---
Procedure Date: 03/26/23 Time: 09:58 Anesthesiologist:: Jourdan Laura CRNA Complications:: None Pre-procedure Diagnosis:: Left sacroiliitis Post-procedure Diagnosis:: Same Indications for Procedure:: Patient is a very pleasant 62-year-old female comes our clinic today for a left sacroiliac joint injection. Upon examination she has extreme point tenderness over the left sacroiliac joint. Patient reports difficulty transitioning from sitting to standing. Difficulty with ambulation at times. This pain goes back for 2 years. However, she does report today it has been better over the last week or 2. However, she would like to proceed with the injection. Procedure Details:: Procedure: Left sacroiliac injection under fluoroscopy Informed consent was obtained and the risk and benefits of the procedure were explained to the patient.~ The patient was taken to the procedure room and noninvasive monitors were placed including noninvasive blood pressure cuff and pulse oximeter.~ The patient was placed prone on the procedure table.~ The~ left hip was cleansed using Betadine as a cleansing solution.~ C-arm fluorosocpy was used to view the left SI joint.~ The skin and subcutaneous tissues were anesthetized using Lidocaine 1.5% and a 25-gauge needle.~ After this, a 22-gauge spinal needle was inserted under fluoroscopic guidance into the inferior aspect of the left SI joint.~ Omnipaque dye was injected and a good spread was seen throughout the joint.~ After this, approximately 5 mL of bupivacaine 0.25% and Depo-Medrol 40 mg was incrementally injected into the sacroiliac joint.~ The patient tolerated the procedure well with no complications.~ The patient was observed in the Pain Clinic for a period of 30-45 minutes, then discharged home neurologically intact.~ Plan and Disposition:: Patient was discharged without incident.
[2023-03-26 10:35] VITALS: BP 151/79; PULSE 58; RESP 18; O2SAT 96
== END 2023-03-26 10:35 | disposition home or self-care (01) ==
PROVIDERS: PCP Internal Medicine; Visit Provider Nurse Anesthetist, Certified Registered
DX: M46.1 Sacroiliitis, not elsewhere classified (principal)
CPT/HCPCS: 27096; G0260; J1040

== ENCOUNTER 2023-04-10 11:15 | Outpatient (POV) | payer BC, SELFPAY ==
--- NOTE | 2023-04-10 11:53 | A.OFFVIS_ITS ---
[facility] Pain Management SOAP Note Subjective:: Patient is a pleasant 62-year-old female who presents today for follow-up of her left SI injection on 03/26/2022. Currently treating the patient for low back pain, left hip pain, left sacroiliitis. Today she rates her pain a 0 out of 10. Patient states that she has found significant improvement following this injection and that she has been able to increase her activity with decreased pain symptoms and feels overall more functional. Patient does state that 2 days ago she did have some worsening pain however today it is not bothering her at all and has had 100% relief. Patient is currently managed with tramadol and gabapentin from outside providers. Patient was prescribed compounded cream at her last visit and states that she has gotten this in the mail however she did not try it in and around her hip/upper buttocks area. Her Andrez has been reviewed and is appropriate. Review of Systems: General: No recent weight changes, no fever, no sleep disturbances Respiratory: No cough, no shortness of air, no recurring pulmonary infections Cardiovascular/peripheral vascular: No chest pain, no palpitations, no edema, no shortness of breath Gastrointestinal: No new onset incontinence, normal bowel movements reported Genitourinary: No new onset incontinence Musculoskeletal: Low back pain Psychiatric: [Normal mood/affect] Neurological: [Denies weakness in extremities], [denies balance issues] Objective:: Physical Exam: General: Alert and oriented x3, no acute distress, pleasant and cooperative Lungs: Respirations even and unlabored, symmetrical chest expansion Eyes: PERRL Musculoskeletal: Flexion and extension of lumbar [spine] somewhat guarded secondary to pain, [antalgic gait noted] Neurological: Speech clear, no gross sensory deficit Assessment:: Low back pain, left hip pain, left sacroiliitis Plan:: Patient has had significant improvement following her left SI injection and does not require any additional injection therapy at this time. Patient will return to clinic in 1 month for reevaluation of symptoms and plan of care. Patient has been instructed to contact the clinic with any concerns before the next appointment. Dr. Warner has reviewed this note and agrees with this plan of care. This note was dictated using voice recognition software and make contain errors or omissions. [facility] Disclaimer: The information contained in this section may have been updated after the patient was seen, as this information can be updated by other users. Medical History Allergies Breast cancer Chest pain History of colon polyps Hx of malignant neoplasm of breast Hypertension Insomnia Shoulder pain Sleep apnea Surgical History H/O tubal ligation History of appendectomy History of colonoscopy History of lumpectomy History of surgery on arm Family History Other Family history of cancer Family history of diabetes mellitus type II Family history of myocardial infarction Social History Smoking Status: Current some day smoker tobacco type: e-cigarettes alcohol intake: current substance use type: denies use current occupational status: unemployed Travel in the last 8 weeks: None household members: spouse 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
[2023-04-10 12:44] VITALS: BP 131/68; PULSE 68; RESP 18; O2SAT 95; BMI 23.9
== END 2023-04-10 23:59 ==
LOC: SC.PAIN 11:16
PROVIDERS: PCP Internal Medicine; Visit Provider Nurse Practitioner Family
DX: M54.50 Low back pain, unspecified (principal); M25.552 Pain in left hip; M46.1 Sacroiliitis, not elsewhere classified
CPT/HCPCS: 99212; G0463

== ENCOUNTER 2023-05-08 13:06 | Outpatient (POV) | payer BC, SELFPAY ==
--- NOTE | 2023-05-08 13:22 | A.OFFVIS_ITS ---
[facility] Pain Management SOAP Note Subjective:: Patient is a pleasant 62-year-old female who presents today for 1 month follow- up. She rates her pain today a 4 out of 10. She denies any new injury or trauma. She does state that she is starting to have little shocklike sensations in and around her left hip but just occasionally when she goes to stand. Patient states that overall she is still doing well following the last SI injection in March. She does state that that injection was very painful and that she is not wanting to repeat it anytime soon. Patient is managed with tramadol and gabapentin from outside providers. She does use compounded cream from our office and will use it up to 2 times per day. She states that she felt like when she used it a little bit more frequently she had more burning sensations. Her Andrez has been reviewed and is appropriate. Review of Systems: General: No recent weight changes, no fever, no sleep disturbances Respiratory: No cough, no shortness of air, no recurring pulmonary infections Cardiovascular/peripheral vascular: No chest pain, no palpitations, no edema, no shortness of breath Gastrointestinal: No new onset incontinence, normal bowel movements reported Genitourinary: No new onset incontinence Musculoskeletal: Low back pain, left hip pain Psychiatric: [Normal mood/affect] Neurological: [Denies weakness in extremities], [denies balance issues] Objective:: Physical Exam: General: Alert and oriented x3, no acute distress, pleasant and cooperative Lungs: Respirations even and unlabored, symmetrical chest expansion Eyes: PERRL Musculoskeletal: Flexion and extension of lumbar [spine] somewhat guarded secondary to pain, [antalgic gait noted] Neurological: Speech clear, no gross sensory deficit Assessment:: Low back pain, left hip pain, left sacroiliitis Plan:: Patient denies any heart or kidney issues. I have counseled the patient that she may benefit from the addition of a daily anti-inflammatory. I will send in a 2-week prescription of meloxicam 7.5 mg daily. Patient has been counseled to discontinue all other NSAIDs while taking this medication and to take it with food to minimize GI upset. Patient was also discussed to contact our office if this does help for additional refills between now and her next visit. Patient will return to clinic in 3 months for reevaluation of symptoms and plan of care. Patient has been instructed to contact the clinic with any concerns before the next appointment. Dr. Warner has reviewed this note and agrees with this plan of care. This note was dictated using voice recognition software and make contain errors or omissions. [facility] Disclaimer: The information contained in this section may have been updated after the patient was seen, as this information can be updated by other users. Medical History Sleep apnea Allergies Breast cancer History of colon polyps Shoulder pain Chest pain Hx of malignant neoplasm of breast Insomnia Hypertension Surgical History History of colonoscopy History of lumpectomy History of surgery on arm H/O tubal ligation History of appendectomy Family History Other Family history of cancer Family history of diabetes mellitus type II Family history of myocardial infarction Social History Smoking Status: Current some day smoker tobacco type: e-cigarettes alcohol intake: current substance use type: denies use current occupational status: unemployed Travel in the last 8 weeks: None household members: spouse 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
[2023-05-08 14:27] VITALS: BP 142/78; PULSE 78; RESP 20; O2SAT 94; BMI 22.6
== END 2023-05-08 23:59 | disposition home or self-care (01) ==
PROVIDERS: PCP Family Medicine; Visit Provider Nurse Practitioner Family
DX: M54.50 Low back pain, unspecified (principal); M25.552 Pain in left hip; M46.1 Sacroiliitis, not elsewhere classified
CPT/HCPCS: 99212; G0463

== ENCOUNTER 2023-05-14 20:50 | Outpatient (CLI) | payer BC, SELFPAY ==
[2023-05-14 18:10] LABS: Basophils # 0.1 K/mm3 (0-0.2); Basophils % 0.8 % (0.1-2.0); Eosinophils # 0.1 K/mm3 (0.0-0.4); Eosinophils % 1.4 % (0.1-12.0); Hematocrit 44.5 % (37.0-47.0); Hemoglobin 14.5 g/dL (12.2-16.2); Lymphocytes # 2.8 K/mm3 (0.7-4.5); Lymphocytes % 31.5 % (10-50); Mean Corpuscular HGB Conc 32.5 g/dL (31.8-35.4); Mean Corpuscular Hemoglobin 35.4 pg (27.0-31.2); Mean Corpuscular Volume 109.1 fl (81-99); Mean Platelet Volume 9.4 fl (7.4-10.4); Monocytes # 0.5 K/mm3 (0.1-1.0); Monocytes % 5.7 % (1.7-9.3); Neutrophils # 5.4 K/mm3 (1.8-7.8); Neutrophils % 60.6 % (37.0-80.0); Platelet Count 383 K/mm3 (142-424); Red Blood Count 4.08 M/mm3 (4.20-5.40); Red Cell Distribution Width 13.8 % (11.5-17.5); White Blood Count 8.9 K/mm3 (4.8-10.8)
[2023-05-14 18:22] LABS: Alanine Aminotransferase 13 U/L (12-78); Albumin Level 4.3 g/dl (3.5-5.0); Albumin/Globulin Ratio 1.7 (1.1-1.8); Alkaline Phosphatase 95 U/L (38-126); Anion Gap 13.3 mEq/L (5-15); Aspartate Amino Transferase 35 U/L (14-36); Bilirubin,Total 0.3 mg/dl (0.2-1.3); Blood Urea Nitrogen 15 mg/dl (7-17); Calcium 9.8 mg/dl (8.4-10.2); Carbon Dioxide 23 mmol/L (22.0-30.0); Chloride 106 mmol/L (98-107); Cholesterol 253 mg/dl (140-200); Estimated Glomerular Filt Rate 125 ml/min (>60); GFR (African American) 151 ML/MIN (>60); Globulin 2.6 g/dL (1.3-3.2); Glucose 83 mg/dl (74-100); Potassium 4.3 mmoL/L (3.5-5.1); Sodium 138 mmol/L (136-145); Total Protein,Serum 6.9 g/dl (6.3-8.2); Triglycerides 292 mg/dl (30-150); VLDL Cholesterol 58 mg/dL (0-40)
[2023-05-14 18:29] LABS: Chol/HDL Ratio 2.5 (1-3.5); HDL Cholesterol 100 mg/dl (40-60)
[2023-05-14 18:33] LABS: Direct LDL Cholesterol 105.99 mg/dL (100-129)
[2023-05-14 18:38] LABS: 25-OH Vitamin D, Total 39.8 ng/mL (30-100)
[2023-05-14 18:52] LABS: Thyroid Stimulating Hormone 0.95 uIU/mL (0.465-4.68)
== END 2023-05-14 23:59 ==
LOC: LAB.DROPOF 20:50
PROVIDERS: Visit Provider Family Medicine
DX: I10 Essential (primary) hypertension (principal); R10.9 Unspecified abdominal pain; Z79.899 Other long term (current) drug therapy
CPT/HCPCS: 80053; 80061; 82306; 84443; 85025

== ENCOUNTER 2023-06-11 12:49 | Outpatient (CLI) | payer BC, SELFPAY ==
--- NOTE | 2023-06-11 12:55 | MR_ITS ---
FINAL REPORT TECHNIQUE: Multiplanar MR without gadolinium enhancement CLINICAL HISTORY: RIGHT SIDED NECK and shoulder pain. FINDINGS: Limited images of the posterior fossa are unremarkable. Alignment is normal. Cervical spinal cord shows normal signal and contour. C2-3: No focal disc protrusion C3-4: Mild annular disc bulge and facet arthropathy. Mild right neural foraminal narrowing. Mild central canal stenosis. C4-5: Moderate annular disc bulge with facet arthropathy. Moderate central canal stenosis and bilateral neural foraminal narrowing. C5-6: Mild annular disc bulge. Bony hypertrophic changes. Mild central canal stenosis. Moderate to severe bilateral neural foraminal narrowing. C6-7: Mild annular disc bulge and facet arthropathy. No canal stenosis. C7-T1: Unremarkable IMPRESSION: Multilevel degenerative disc disease with canal stenosis and neural foraminal narrowing as specified above most pronounced C4-5 and C5-6 Authenticated and ERN
== END 2023-06-11 23:59 | disposition home or self-care (01) ==
LOC: RAD 12:51
PROVIDERS: PCP Family Medicine; Visit Provider Orthopaedic Surgery
DX: M54.2 Cervicalgia (principal); M25.511 Pain in right shoulder
CPT/HCPCS: 72141; 76376

== ENCOUNTER 2023-06-18 12:44 | Outpatient (CLI) | payer BC, SELFPAY ==
--- NOTE | 2023-06-18 12:44 | US_ITS ---
PROCEDURE: US TRANSVAGINAL CLINICAL INDICATION: abd pain, swelling, tenderness COMPARISON: No exams were available for comparison FINDINGS: Transvaginal sonographic images of the pelvis were obtained. UTERUS: 5.6cm x 3.9 cmx 2.9 cm retroverted with a combined endometrial thickness of 2.1mm. There is a fibroid measuring 1.3 cm x 1.2 cm x 1.2 cm. LEFT OVARY: 0.7 cmx1.4cmx1.7cm with a volume of 0.8ml. RIGHT OVARY: 1.5x 1.3cmx1.0cm with a volume of 1.1ml. Both ovaries are seen and appear normal. Doppler flow to both ovaries are seen. There is no fluid in the cul-de-sac. IMPRESSION: 1. Small, retroverted uterus. 2. There is a 1.3 cm fibroid within the myometrium posteriorly. 3. The endometrium is thin at 2.1 mm. 4. Both ovaries are seen and appear atrophic. 5. No fluid in the cul-de-sac. Dictated by: Duglas Collado MD 06/18/2023 15:01 Duglas Collado MD in OV 06/18/2023 15:01
== END 2023-06-18 23:59 | disposition home or self-care (01) ==
LOC: RAD 12:44
PROVIDERS: PCP Family Medicine; Visit Provider Family Medicine
DX: R10.819 Abdominal tenderness, unspecified site (principal); R14.0 Abdominal distension (gaseous); R10.9 Unspecified abdominal pain
CPT/HCPCS: 76830

== ENCOUNTER 2023-07-28 15:12 | Emergency (ER) | payer BC, SELFPAY ==
[2023-07-28] VITALS (7 sets, daily range): BP systolic 106–122; BP diastolic 66–83; PULSE 60–73; RESP 18–20; TEMP 36.8–36.9; O2SAT 90–97; BMI 22.3
--- NOTE | 2023-07-28 15:26 | PC.NURSE ---
Jose OSMAN at [facility] for pt eval
--- NOTE | 2023-07-28 15:27 | ED_ITS ---
<Statement entered by Mikael Clay MD - 07/28/23 22:56> I was consulted by the HAYLEY, and we discussed the complexity of the problems being addressed. I approved the treatment and management plan for this patient's care in the emergency department, thus performing a substantive portion of the medical decision making. Mikael Clay MD, RAFI, FACEP Discharge Plan Disposition Patient Disposition: Home, Self-Care Condition: Good Chief Complaint: Abdominal Pain Prescriptions Prescriptions: No Action montelukast 10 mg tablet 10 mg PO DAILY Qty: 30 2RF cetirizine [Allergy Relief (cetirizine)] 10 mg tablet See Rx Instructions .ROUTE .COMPLEX Qty: 90 0RF Rx Instructions: Take 1 tablet by mouth once daily trazodone 100 mg tablet 100 mg PO DAILY PRN (Reason: Sleep) Qty: 30 2RF cholecalciferol (vitamin D3) [Vitamin D3] 25 mcg (1,000 unit) capsule See Rx Instructions .ROUTE .COMPLEX Qty: 90 0RF Dose Instruction: Take 1 capsule by mouth once daily Rx Instructions: Take 1 capsule by mouth once daily fluticasone propionate 50 mcg/actuation spray,suspension 1 spray INTRANASAL DAILY PRN (Reason: ALLERGIES) Qty: 16 4RF metoprolol tartrate 50 mg tablet 50 mg PO BID 90 Days Qty: 180 3RF sertraline 100 mg tablet See Rx Instructions .ROUTE .COMPLEX Qty: 90 1RF Dose Instruction: Take 1 tablet by mouth once daily Rx Instructions: Take 1 tablet by mouth once daily amlodipine 10 mg tablet See Rx Instructions .ROUTE .COMPLEX Qty: 90 1RF Dose Instruction: Take 1 tablet by mouth once daily for blood pressure Rx Instructions: Take 1 tablet by mouth once daily for blood pressure epinephrine 0.3 mg/0.3 mL auto-injector 0.3 mg IM Q5-15M PRN (Reason: anaphylaxis) Qty: 2 0RF Rx Instructions: do not exceed 3 doses per episode aspirin [Adult Low Dose Aspirin] 81 mg tablet,delayed release (DR/EC) 81 mg PO DAILY Referrals Follow up/Referrals: Jenni Hanley APRN [Primary Care Provider] - See instructions Activity Restrictions/Add. Instructions Additional Instructions/Restrictions: Please keep your appointment with Dr. Gould this week. Return to the emergency department for any worsening signs or symptoms including inability to tolerate anything by mouth or inability to pass gas or stool. Clinical Impressions Clinical Impression: Nausea vomiting and diarrhea Instructions Patient Instructions: DI for Acute Abdominal Pain, Nausea and Vomiting-Adult, Diarrhea Discharge ED Provider: Mikael Clay General Adult HPI General Chief complaint: Abdominal Pain Stated complaint: severe stomach pain v/d Time Seen by Provider: 07/28/23 15:21 History of Present Illness HPI narrative: Patient presents for 24-hour history of epigastric abdominal pain nausea vomiting diarrhea. Patient states that she had an unprovoked onset of epigastric abdominal pain with associated nausea vomiting diarrhea. She denies NSAID use she denies alcohol use. She states that the abdominal pain started first followed by the nausea vomiting and then the loose stool. She denies chest pain shortness of breath fever chills hemoptysis hematochezia melena hematemesis hematuria. Related Data Home Medications Medication Instructions Recorded Confirmed aspirin 81 mg tablet,delayed 81 mg PO DAILY Heartburn 02/13/22 07/12/23 release (Adult Low Dose Aspirin) Previous Rx's Medication Instructions Recorded epinephrine 0.3 mg/0.3 mL 0.3 mg (0.3 mL) IM Q5-15M PRN 07/26/20 injection, auto-injector anaphylaxis #2 ea cholecalciferol (vitamin D3) 25 See Rx Instructions .Route 05/08/23 mcg (1,000 unit) capsule (Vitamin .COMPLEX #90 caps D3) fluticasone propionate 50 1 spray intranasal DAILY PRN 05/08/23 mcg/actuation nasal ALLERGIES #16 grams spray,suspension metoprolol tartrate 50 mg tablet 50 mg PO BID heart 90 days #180 05/08/23 tabs sertraline 100 mg tablet See Rx Instructions .Route 05/08/23 .COMPLEX #90 tabs trazodone 100 mg tablet 100 mg PO DAILY PRN Sleep #30 tabs 05/08/23 amlodipine 10 mg tablet See Rx Instructions .Route 06/03/23 .COMPLEX #90 tabs cetirizine 10 mg tablet (Allergy See Rx Instructions .Route 07/01/23 Relief (cetirizine)) .COMPLEX allergies #90 tabs montelukast 10 mg tablet 10 mg PO DAILY #30 tabs 07/01/23 Allergies Allergy/AdvReac Type Severity Reaction Status Date / Time Penicillins Allergy Rash Verified 07/12/23 14:25 venom-wasp AdvReac Severe Anaphylaxis Verified 07/12/23 14:25 lisinopril AdvReac Intermediate Cough Verified 07/12/23 14:25 [facility] Disclaimer: The information contained in this section may have been updated after the patient was seen, as this information can be updated by other users. Medical History Sleep apnea Allergies Breast cancer History of colon polyps Shoulder pain Chest pain Hx of malignant neoplasm of breast Insomnia Hypertension Surgical History History of colonoscopy History of lumpectomy RIGHT SIDE History of surgery on arm H/O tubal ligation History of appendectomy Family History Other Family history of cancer Family history of diabetes mellitus type II Family history of myocardial infarction Social History Smoking Status: Current every day smoker tobacco type: e-cigarettes alcohol intake: current alcohol intake frequency: holidays/special occasions only substance use type: denies use current occupational status: other Travel in the last 8 weeks: None household members: spouse 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 ROS Obtained: Yes Systems reviewed as appropriate & no additional complaints except as documented Physical Exam General General appearance: alert and in no apparent distress Respiratory Respiratory exam: Present normal lung sounds bilaterally Cardiovascular Cardiovascular exam: Present regular rate and normal rhythm Abdominal Exam Abdominal exam: Present soft, tenderness (Tender to palpation in the epigastrium) and normal bowel sounds; Absent guarding, rebound or rigidity Back Exam Back exam: Present normal inspection and full ROM; Absent tenderness Neurological Exam Neurological exam: Present alert and oriented X3 Medical Decision Making Medical Records Medical records reviewed: Yes I reviewed the patient's medical records. Andrez Inquiry Pt receiving controlled substance: No Vital Signs: 07/28/23 15:13 07/28/23 16:32 07/28/23 17:00 Temperature 98.5 F Temperature Source Oral Pulse Rate 64 Pulse Rate [Right Radial] 73 Respiratory Rate 20 Blood Pressure 122/73 121/72 Blood Pressure [Right Arm] 122/82 Blood Pressure Mean 88 Blood Pressure Mean [Right Arm] 95 02 Sat by Pulse Oximetry 96 93 L 91 L Oxygen Delivery Method Room Air Room Air Room Air 07/28/23 17:31 07/28/23 18:00 07/28/23 18:36 Temperature Temperature Source Pulse Rate 60 65 60 Pulse Rate [Right Radial] Respiratory Rate Blood Pressure 106/66 L 112/74 114/83 Blood Pressure [Right Arm] Blood Pressure Mean Blood Pressure Mean [Right Arm] 02 Sat by Pulse Oximetry 90 L 95 97 Oxygen Delivery Method Room Air Room Air Room Air Lab Data Lab results reviewed: Yes I reviewed the patient's lab results. Lab Results 07/28/23 15:45: Urine Color Dark yellow, Urine Appearance Sl cloudy, Urine pH 5.5, Ur Specific [place] >= 1.030, Urine Protein 1+, Urine Glucose (UA) Trace, Urine Ketones 1+, Urine Blood Negative, Urine Nitrate Negative, Urine Bilirubin 2+ A, Urine Urobilinogen 1.0, Ur Leukocyte Esterase Trace, Urine RBC Occasional, Urine WBC Occasional, Ur Squamous Epith Cells None, Calcium Oxalate Crystal 1+, Urine Bacteria 1+ 07/28/23 16:00: WBC 9.5, RBC 4.68, Hgb 16.5 H, Hct 50.9 H, MCV 108.7 H, MCH 35.2 H, MCHC 32.4, RDW 13.7, Plt Count 313, MPV 7.2 L, Neut % (Auto) 74.9, Lymph % (Auto) 16.6, [place] % (Auto) 4.7, Eos % (Auto) 1.7, Baso % (Auto) 2.1 H, Neut # (Auto) 7.1, Lymph # (Auto) 1.6, [place] # (Auto) 0.4, Eos # (Auto) 0.2, Baso # (Auto) 0.2, PT 10.1, INR 0.93, Sodium 134 L, Potassium 3.5, Chloride 100, Carbon Dioxide 28, Anion Gap 9.5, BUN 11, Creatinine 0.80, Estimated Creat Clear 54, Estimated GFR 72, Est GFR ( Amer) 88, Glucose 113 H, Lactate 1.0, Calcium 9.6, Total Bilirubin 0.6, AST 34, ALT 16, Alkaline Phosphatase 65, Total Protein 7.3, Albumin 4.3, Globulin 3.0, Albumin/Globulin Ratio 1.4, Lipase 75 07/28/23 16:00 07/28/23 16:00 Orders (Tests/Meds): ED MEDICATIONS Discontinued Medications Generic Name Dose Route Start Last Admin Trade Name Hasmukh PRN Reason Stop Dose Admin Acetaminophen 1,000 mg 07/28/23 15:29 07/28/23 15:56 Acetaminophen 1,000mg/100ml Vial IV 07/28/23 15:30 1,000 mg ONCE ONE Administration Belladonna Alkaloids 60 ml 07/28/23 15:29 07/28/23 15:56 Belladonna Alkaloids 60 Ml Ml PO 07/28/23 15:30 60 ml ONCE ONE Administration Lactated Ringer's 1,000 mls @ 999 mls/hr 07/28/23 15:29 07/28/23 15:56 Lactated Ringer's 1000 Ml Bag IV 07/28/23 16:29 999 mls/hr .Q1H1M ONE Administration Iopamidol 75 ml 07/28/23 16:28 07/28/23 16:29 Iopamidol-370 (76%);100ml Bottle IV 07/28/23 16:29 75 ml ONCE ONE Administration Ondansetron HCl 4 mg 07/28/23 15:29 07/28/23 15:56 Ondansetron 4mg/2ml Vial IV 07/28/23 15:30 4 mg ONCE ONE Administration Sodium Chloride 10 ml 07/28/23 16:28 07/28/23 16:29 Sodium Chloride 0.9% 10ml Syr (Rad Only) IV 07/28/23 16:29 10 ml ONCE ONE Administration ORDERS Category Date Time Status CT abdomen pelvis w con Stat Cat Scan 07/28/23 15:29 Completed CBC w/Auto Diff [Complete Blood Count Auto Diff] Stat Lab 07/28/23 16:00 Completed CMP [Comprehensive Metabolic Panel] Stat Lab 07/28/23 16:00 Completed INR [Prothrombin Time INR] Stat Lab 07/28/23 16:00 Completed Lactic Acid Stat Lab 07/28/23 16:00 Completed Lipase Stat Lab 07/28/23 16:00 Completed UA [Urinalysis and Microscopic] Stat Lab 07/28/23 15:45 Completed Medical Decision Narrative: In summary patient is a 63-year-old female who presents to the emergency department for evaluation of epigastric abdominal pain nausea vomiting diarrhea. Patient is hemodynamically stable upon arrival, afebrile. Exam is remarkable for epigastric abdominal tenderness to palpation without rebound or guarding rigidity. Negative Garvin sign on palpation. Bowel sounds normal active. Differential diagnosis includes gastritis versus ulcer versus esophagitis versus acute cholecystitis versus acute pancreatitis versus gastroenteritis etc. Initial workup will be conducted with hematologic labs, CT scan abdomen pelvis with contrast, urinalysis. Initial interventions include crystalloid bolus Toradol Tylenol Zofran. Initial workup reviewed by me shows her hematologic labs are nonactionable including a normal white count with no shift normal urinalysis however my informal read of her CT scan abdomen pelvis shows some dilated proximal small bowel and decompressed distal small bowel and colon but no obvious transition point prior to radiology read. Upon repeat evaluation patient however has had complete resolution of her symptoms and has not tolerated oral intake in the emergency department without nausea vomiting or pain. Given this I had interactive discussion with the patient regarding her findings and via patient directed decision making patient is elected to go home and can keep her follow-up with GI. She will return to the emergency department if she has inability to not tolerate oral intake or not passing gas or flatus. Critical Care Critical Care Time Critical Care Time: No
--- NOTE | 2023-07-28 15:29 | CT_ITS ---
PROCEDURE INFORMATION: Exam: CT Abdomen And Pelvis With Contrast Exam date and time: 07/28/2023 4:27 PM Age: 63 years old Clinical indication: Nausea and vomiting; Abdominal pain; Additional info: Gastric abdominal pain nausea vomiting diarrhea TECHNIQUE: Imaging protocol: Computed tomography of the abdomen and pelvis with contrast. Radiation optimization: All CT scans at this facility use at least one of these dose optimization techniques: automated exposure control; mA and/or kV adjustment per patient size (includes targeted exams where dose is matched to clinical indication); or iterative reconstruction. Contrast material: ISOVUE; Contrast volume: 75 ml; Contrast route: IV; COMPARISON: US TRANSVAGINAL 06/18/2023 1:21 PM FINDINGS: Lungs: There is a pulmonary parenchymal calcification consistent with remote granulomatous organism exposure. Pleural spaces: There are no pleural effusions. Heart: The visualized portions of the heart are unremarkable. There is no evidence of pericardial fluid collections. Liver: There is diffuse decrease in hepatic/liver parenchymal density consistent with fatty infiltration. Gallbladder and bile ducts: The gallbladder is normal. There is a mild, expected degree of common bile duct dilation. Pancreas: Normal. No ductal dilation. Spleen: The spleen demonstrates punctate calcifications, consistent with remote granulomatous organism exposure. An accessory splenule is present. Adrenal glands: Normal. No mass. Kidneys and ureters: The kidneys are normal. Stomach and bowel: Lack of gastrointestinal contrast limits evaluation of bowel. There are a few colonic diverticula without evidence of diverticulitis. There is prominent lipomatosis hypertrophy of the ileocecal valve with an ovoid fat density area in this region measuring 2.2 x 1.9 cm. Cannot exclude lipoma. Apparent gastric mural thickening could be on the basis of incomplete distension but cannot exclude gastritis or other inflammatory or infiltrative process. Correlate clinically. The duodenum is unremarkable. There are multiple fluid and gas-filled distended loops of proximal mid small bowel, some of which show mural thickening and/or air-fluid levels. There is progressive decrease in caliber involving more distal loops of bowel and a transition from dilated to decompressed small bowel in the central pelvis without discrete mass in this region. Correlate clinically. Appendix: The proximal appendix appears normal. The distal appendix is not well seen. An abnormal dilated appendix is not identified. Intraperitoneal space: No evidence of intraperitoneal free air. Small amount of of interloop and pelvic free fluid. Vasculature: The aorta and iliac arteries demonstrate mild atherosclerotic calcification. Lymph nodes: There is no evidence of pathologic adenopathy. Urinary bladder: The bladder is decompressed. There is mild bladder wall thickening. Reproductive: The uterus is small consistent with the patient's age. No adnexal masses. Bones/joints: The thoracolumbar spine demonstrates mild degenerative changes at multiple levels. Soft tissues: No significant soft tissue edema. IMPRESSION: 1. Multiple fluid and gas-filled distended loops of proximal mid small bowel, some of which show mural thickening and/or air-fluid levels. There is progressive decrease in caliber involving more distal loops of bowel and a transition from dilated to decompressed small bowel in the central pelvis without discrete mass in this region. Correlate clinically. Differential includes evolving small bowel obstruction, enteritis/inflammatory bowel disease or other inflammatory/infiltrative processes including neoplasm or ischemia in the appropriate setting. Correlate clinically. 2. Small amount of interloop and pelvic free fluid. 3. Prominent lipomatosis hypertrophy of the ileocecal valve with an ovoid fat density area in this region measuring 2.2 x 1.9 cm versus lipoma 4. Fatty hepatic infiltration. 5. Mild bladder wall thickening most likely reflecting incomplete distention or cystitis. 6. Apparent gastric mural thickening could be on the basis of incomplete distension but cannot exclude gastritis or other inflammatory or infiltrative process. Correlate clinically.
[2023-07-28 15:52] LABS: Microscopic, Urine URINE MICROSCOPIC (MICROSCOPIC)
[2023-07-28] MEDS: ACETAMINOPHEN 1,000MG/100ML VIAL 1000 MG IV (15:56)
[2023-07-28] MEDS: LACTATED RINGERS 1000ML 1,000 ML 999 ML IV (15:56)
[2023-07-28] MEDS: ONDANSETRON 4MG/2ML VIAL 4 MG IV (15:56)
[2023-07-28] MEDS: BELLADONNA ALKALOIDS 60 ML ML PO (15:56)
[2023-07-28 16:00] LABS: Appearance,Urine SL CLOUDY (Clear); Blood, Urine Negative (Negative); Color,Urine DARK YELLOW (Yellow); Glucose,Urine (UA) TRACE (Negative); Ketones,Urine 1+ (Negative); Leukocyte Esterase,Urine TRACE (Negative); Nitrate,Urine Negative (Negative); PH,Urine 5.5 (5.0-8.5); Protein,Urine 1+ (Negative); Specific Gravity, Urine >= 1.030 (1.005-1.030)
[2023-07-28 16:07] LABS: Basophils # 0.2 K/mm3 (0-0.2); Basophils % 2.1 % (0.1-2.0); Eosinophils # 0.2 K/mm3 (0.0-0.4); Eosinophils % 1.7 % (0.1-12.0); Hematocrit 50.9 % (37.0-47.0); Hemoglobin 16.5 g/dL (12.2-16.2); Lymphocytes # 1.6 K/mm3 (0.7-4.5); Lymphocytes % 16.6 % (10-50); Mean Corpuscular HGB Conc 32.4 g/dL (31.8-35.4); Mean Corpuscular Hemoglobin 35.2 pg (27.0-31.2); Mean Corpuscular Volume 108.7 fl (81-99); Mean Platelet Volume 7.2 fl (7.4-10.4); Monocytes # 0.4 K/mm3 (0.1-1.0); Monocytes % 4.7 % (1.7-9.3); Neutrophils # 7.1 K/mm3 (1.8-7.8); Neutrophils % 74.9 % (37.0-80.0); Platelet Count 313 K/mm3 (142-424); Red Blood Count 4.68 M/mm3 (4.20-5.40); Red Cell Distribution Width 13.7 % (11.5-17.5); White Blood Count 9.5 K/mm3 (4.8-10.8)
[2023-07-28 16:14] LABS: Chloride 100 mmol/L (98-107); Potassium 3.5 mmoL/L (3.5-5.1); Sodium 134 mmol/L (136-145)
[2023-07-28 16:15] LABS: Bilirubin,Urine 2+ (Negative)
[2023-07-28 16:16] LABS: Bacteria,Urine 1+ /lpf; RBC,Urine Occasional #/hpf (0-3); WBC,Urine Occasional #/hpf (0-3)
[2023-07-28 16:17] LABS: Calcium Oxalate Crystals,Urine 1+ /lpf
[2023-07-28 16:17] LABS: Alanine Aminotransferase 16 U/L (12-78); Albumin Level 4.3 g/dl (3.5-5.0); Albumin/Globulin Ratio 1.4 (1.1-1.8); Alkaline Phosphatase 65 U/L (38-126); Anion Gap 9.5 mEq/L (5-15); Aspartate Amino Transferase 34 U/L (14-36); Bilirubin,Total 0.6 mg/dl (0.2-1.3); Blood Urea Nitrogen 11 mg/dl (7-17); Calcium 9.6 mg/dl (8.4-10.2); Carbon Dioxide 28 mmol/L (22.0-30.0); Creatinine Clearance Estimated 54 mL/min (50-200); Estimated Glomerular Filt Rate 72 ml/min (>60); GFR (African American) 88 ML/MIN (>60); Glucose 113 mg/dl (74-100); Lipase 75 U/L (23-300); Total Protein,Serum 7.3 g/dl (6.3-8.2)
[2023-07-28 16:20] LABS: INR 0.93 (0.9-1.1); Prothrombin Time 10.1 seconds (10.1-12.5)
--- NOTE | 2023-07-28 16:23 | PC.NURSE ---
PT TO XR
[2023-07-28] MEDS: IOPAMIDOL-370 (76%);100ML BOTTLE 75 ML IV (16:29)
[2023-07-28] MEDS: SODIUM CHLORIDE 0.9% 10ML SYR (RAD ONLY) 10 ML IV (16:29)
--- NOTE | 2023-07-28 16:32 | PC.NURSE ---
RETURNED FORM CT
== END 2023-07-28 18:52 | disposition home or self-care (01) ==
PROVIDERS: Physician Assistant; Emergency Provider Student in an Organized Health Care Education/Training Program; PCP Family Medicine
DX: R10.13 Epigastric pain (principal); R11.2 Nausea with vomiting, unspecified; R19.7 Diarrhea, unspecified; F17.290 Nicotine dependence, other tobacco product, uncomplicated; I10 Essential (primary) hypertension
CPT/HCPCS: 74177; 80053; 81001; 83605; 83690; 85025; 85610; 96361; 96374; 96375; 99285; J0131; J2405; J7120; Q9967

== ENCOUNTER 2023-08-08 10:29 | Outpatient (POV) | payer BC, SELFPAY ==
[2023-08-08 11:05] VITALS: BP 114/67; PULSE 63; RESP 16; O2SAT 96; BMI 22.6
--- NOTE | 2023-08-08 11:24 | EXP.PAIN.SOA ---
[facility] Disclaimer: The information contained in this section may have been updated after the patient was seen, as this information can be updated by other users. Medical History Sleep apnea Allergies Breast cancer History of colon polyps Shoulder pain Chest pain Hx of malignant neoplasm of breast Insomnia Hypertension Surgical History History of colonoscopy History of lumpectomy RIGHT SIDE History of surgery on arm H/O tubal ligation History of appendectomy Family History Other Family history of cancer Family history of diabetes mellitus type II Family history of myocardial infarction Social History Smoking Status: Current every day smoker tobacco type: e-cigarettes alcohol intake: current alcohol intake frequency: holidays/special occasions only substance use type: denies use current occupational status: other Travel in the last 8 weeks: None household members: spouse current occupation: [employer] current occupational exposures/hazards: Yes caffeine: No PM Subjective & Objective Subjective Subjective:: 0Patient is a pleasant 63-year-old female who presents today for follow-up. Today she rates her pain 9 out of 10 in her back however states her pain in her left arm and left shoulder is a 6 out of 10. Patient states this is been going on for the last several weeks. Patient states she ended up having surgery on her left elbow area and then she went to recover with physical therapy. Patient states that they were doing his exercises to help movement and applied traction and around her neck when the pain started in her shoulder. Patient does state this is a constant sharp achy sensation and interferes with her ability perform activities of daily living. Patient has tried [id number] medications along with heat and ice and topicals with no additional relief. Patient is prescribed tramadol and gabapentin from outside providers and compounded cream from our office. Her Andrez has been reviewed and is appropriate. Review of Systems: General: No recent weight changes, no fever, no sleep disturbances Respiratory: No cough, no shortness of air, no recurring pulmonary infections Cardiovascular/peripheral vascular: No chest pain, no palpitations, no edema, no shortness of breath Gastrointestinal: No new onset incontinence, normal bowel movements reported Genitourinary: No new onset incontinence Musculoskeletal: Neck pain, left shoulder pain Psychiatric: [Normal mood/affect] Neurological: [Denies weakness in extremities], [denies balance issues] Pain at rest (0-10 scale): 6 Objective Objective:: Physical Exam: General: Alert and oriented x3, no acute distress, pleasant and cooperative Lungs: Respirations even and unlabored, symmetrical chest expansion Eyes: PERRL Musculoskeletal: Flexion and extension of cervical [spine] somewhat guarded secondary to pain, [antalgic gait noted] positive Spurling's test Neurological: Speech clear, no gross sensory deficit Has patient had previous pain injection?: No Conservative treatment options previously tried: Home exercise plan Length of treatment: Longer than 6 weeks, Physical Therapy Length of treatment: Longer than 6 weeks and Prescription medications Length of treatment: Longer than 6 weeks Meds Home Medications and Allergies Home Medications Medication Instructions Recorded Confirmed Type epinephrine 0.3 mg/0.3 mL 0.3 mg (0.3 mL) IM Q5-15M PRN 07/26/20 08/08/23 Rx injection, auto-injector anaphylaxis #2 ea aspirin 81 mg tablet,delayed 81 mg PO DAILY Heartburn 02/13/22 08/08/23 History release (Adult Low Dose Aspirin) fluticasone propionate 50 1 spray intranasal DAILY PRN 05/08/23 08/08/23 Rx mcg/actuation nasal ALLERGIES #16 grams spray,suspension metoprolol tartrate 50 mg tablet 50 mg PO BID heart 90 days #180 05/08/23 08/08/23 Rx tabs sertraline 100 mg tablet See Rx Instructions .Route 05/08/23 08/08/23 Rx .COMPLEX #90 tabs trazodone 100 mg tablet 100 mg PO DAILY PRN Sleep #30 tabs 05/08/23 08/08/23 Rx amlodipine 10 mg tablet See Rx Instructions .Route 06/03/23 08/08/23 Rx .COMPLEX #90 tabs cetirizine 10 mg tablet (Allergy See Rx Instructions .Route 07/01/23 08/08/23 Rx Relief (cetirizine)) .COMPLEX allergies #90 tabs montelukast 10 mg tablet 10 mg PO DAILY #30 tabs 07/01/23 08/08/23 Rx cholecalciferol (vitamin D3) 25 25 mcg PO DAILY vitamin d 07/31/23 08/08/23 Rx mcg (1,000 unit) capsule deficiency #90 caps New Prescriptions to Start Prescriptions: Allergies Allergy/AdvReac Type Severity Reaction Status Date / Time Penicillins Allergy Rash Verified 07/12/23 14:25 venom-wasp AdvReac Severe Anaphylaxis Verified 07/12/23 14:25 lisinopril AdvReac Intermediate Cough Verified 07/12/23 14:25 Assessment and Plan *Assessment and plan (1) Neck pain: Status: Acute Category: Medical Code(s): M54.2 - Cervicalgia (2) Cervical radiculopathy: Status: Acute Category: Medical Code(s): M54.12 - Radiculopathy, cervical region (3) Left shoulder pain: Status: Acute Qualifiers: Chronicity: acute Qualified Code(s): M25.512 - Pain in left shoulder Category: Medical Code(s): M25.512 - Pain in left shoulder Plan Patient is experiencing worsening pain in her neck and left shoulder with numbness and tingling. Patient had limited range of motion of her cervical spine with a positive Spurling's test. I did discuss with the patient that I do believe she would benefit from cervical epidural steroid injection. Risk and benefits were discussed with the patient and she would like to proceed forward with care. Patient did not have this pain until she had physical therapy and where they were doing cervical traction. Patient has tried and failed conservative therapy including recent PT along with continued at home stretching exercise. We will schedule the patient for a ANIBAL C6-C7 under fluoroscopy. Patient has been instructed to contact the clinic with any concerns before the next appointment. Dr. Warner has reviewed this note and agrees with this plan of care. This note was dictated using voice recognition software and make contain errors or omissions.
== END 2023-08-08 23:59 | disposition home or self-care (01) ==
LOC: SC.PAIN 10:31
PROVIDERS: Visit Provider Nurse Practitioner Family
DX: M54.12 Radiculopathy, cervical region (principal); M54.2 Cervicalgia; M25.512 Pain in left shoulder
CPT/HCPCS: 99212; G0463

== ENCOUNTER 2023-09-30 13:27 | Outpatient (POV) | payer BC, SELFPAY ==
[2023-09-30 14:21] VITALS: BP 107/66; PULSE 64; RESP 18; O2SAT 96; BMI 23.1
--- NOTE | 2023-09-30 14:24 | EXP.PAIN.SOA ---
[facility] Disclaimer: The information contained in this section may have been updated after the patient was seen, as this information can be updated by other users. Medical History Sleep apnea Allergies Breast cancer History of colon polyps Shoulder pain Chest pain Hx of malignant neoplasm of breast Insomnia Hypertension Surgical History History of colonoscopy History of lumpectomy RIGHT SIDE History of surgery on arm H/O tubal ligation History of appendectomy Family History Other Family history of cancer Family history of diabetes mellitus type II Family history of myocardial infarction Social History Smoking Status: Current every day smoker tobacco type: e-cigarettes alcohol intake: current alcohol intake frequency: holidays/special occasions only substance use type: denies use current occupational status: other Travel in the last 8 weeks: None household members: spouse 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 Today she rates her pain a 2 out of 10. She denies any new trauma or injury. She does state that from her last appointment she did end up canceling the cervical epidural because she was very worried about getting it. She states that she has a sister who is gotten it in [place] and stated that it was very painful. Patient states that she has been using the compounded cream along with heat and this has seemed to ease it down. Patient does state from her last lumbar injection she is still not had any overall back pain. Patient states that the injection did take about 3 weeks to really kick in however it has made her pain very manageable in her low back and legs. Her Andrez has been reviewed and is appropriate. Review of Systems: General: No recent weight changes, no fever, no sleep disturbances Respiratory: No cough, no shortness of air, no recurring pulmonary infections Cardiovascular/peripheral vascular: No chest pain, no palpitations, no edema, no shortness of breath Gastrointestinal: No new onset incontinence, normal bowel movements reported Genitourinary: No new onset incontinence Musculoskeletal: Neck pain Psychiatric: [Normal mood/affect] Neurological: [Denies weakness in extremities], [denies balance issues] Pain at rest (0-10 scale): 2 Objective Objective:: Physical Exam: General: Alert and oriented x3, no acute distress, pleasant and cooperative Lungs: Respirations even and unlabored, symmetrical chest expansion Eyes: PERRL Musculoskeletal: Flexion and extension of cervical [spine] somewhat guarded secondary to pain, [antalgic gait noted] Neurological: Speech clear, no gross sensory deficit Has patient had previous pain injection?: No Conservative treatment options previously tried: Home exercise plan Length of treatment: Longer than 6 weeks Meds Home Medications and Allergies Home Medications ?Medication ?Instructions ?Recorded ?Confirmed ?Type epinephrine 0.3 mg/0.3 mL 0.3 mg (0.3 mL) IM Q5-15M PRN 07/26/20 09/30/23 Rx injection, auto-injector anaphylaxis #2 ea aspirin 81 mg tablet,delayed 81 mg PO DAILY Heartburn 02/13/22 09/30/23 History release (Adult Low Dose Aspirin) fluticasone propionate 50 1 spray intranasal DAILY PRN 05/08/23 09/30/23 Rx mcg/actuation nasal ALLERGIES #16 grams spray,suspension metoprolol tartrate 50 mg tablet 50 mg PO BID heart 90 days #180 05/08/23 09/30/23 Rx tabs sertraline 100 mg tablet See Rx Instructions .Route 05/08/23 09/30/23 Rx .COMPLEX #90 tabs amlodipine 10 mg tablet See Rx Instructions .Route 06/03/23 09/30/23 Rx .COMPLEX #90 tabs cholecalciferol (vitamin D3) 25 25 mcg PO DAILY vitamin d 07/31/23 09/30/23 Rx mcg (1,000 unit) capsule deficiency #90 caps trazodone 100 mg tablet See Rx Instructions .Route 08/16/23 09/30/23 Rx .COMPLEX #90 tabs cetirizine 10 mg tablet (Allergy See Rx Instructions .Route 09/23/23 09/30/23 Rx Relief (cetirizine)) .COMPLEX #90 tabs montelukast 10 mg tablet See Rx Instructions .Route 09/27/23 09/30/23 Rx .COMPLEX #90 tabs New Prescriptions to Start Prescriptions: Allergies Allergy/AdvReac Type Severity Reaction Status Date / Time Penicillins Allergy Rash Verified 08/28/23 13:07 venom-wasp AdvReac Severe Anaphylaxis Verified 08/28/23 13:07 lisinopril AdvReac Intermediate Cough Verified 08/28/23 13:07 Assessment and Plan *Assessment and plan (1) Cervical radiculopathy: Status: Acute Category: Medical Code(s): M54.12 - Radiculopathy, cervical region (2) Neck pain: Status: Acute Category: Medical Code(s): M54.2 - Cervicalgia Plan Patient is doing overall well currently and does not require any injections at this time. We will follow-up with her in about 2 months for reevaluation of symptoms and plan of care. Patient has been instructed to contact the clinic with any concerns before the next appointment. Dr. Warner has reviewed this note and agrees with this plan of care. This note was dictated using voice recognition software and make contain errors or omissions. All injections are used with Lidocaine or Bupivacaine and Depo Medrol.
== END 2023-09-30 23:59 | disposition home or self-care (01) ==
LOC: SC.PAIN 13:27
PROVIDERS: PCP Family Medicine; Visit Provider Nurse Practitioner Family
DX: M54.12 Radiculopathy, cervical region (principal); M54.2 Cervicalgia; Z85.3 Personal history of malignant neoplasm of breast; U07.0 Vaping-related disorder; Z79.899 Other long term (current) drug therapy
CPT/HCPCS: 99212; G0463

== ENCOUNTER 2024-07-09 15:30 | Outpatient (CLI) | payer OTHER, SELFPAY ==
[2024-07-09 16:28] LABS: Basophils # 0.1 K/mm3 (0-0.2); Basophils % 0.7 % (0.1-2.0); Eosinophils # 0.1 Kmm3 (0.0-0.4); Eosinophils % 1.3 % (0.1-12.0); Hematocrit 41.4 % (37.0-47.0); Hemoglobin 14.2 g/dL (12.2-16.2); Immature Granulocytes # 0.03 10^3uL; Immature Granulocytes % 0.4 %; Lymphocytes # 3.1 K/mm3 (0.7-4.5); Mean Corpuscular HGB Conc 34.3 g/dL (31.8-35.4); Mean Corpuscular Hemoglobin 34.7 pg (27.0-31.2); Mean Corpuscular Volume 101.2 fl (81-99); Mean Platelet Volume 9.1 fl (7.4-10.4); Monocytes # 0.6 K/mm3 (0.1-1.0); Monocytes % 8.3 % (1.7-9.3); Neutrophils # 3.7 K/mm3 (1.8-7.8); Neutrophils % 48.3 % (37.0-80.0); Nucleated Red Blood Cells # 0 10^3/uL; Nucleated Red Blood Cells % 0 %; Platelet Count 277 K/mm3 (142-424); Red Blood Count 4.09 M/mm3 (4.20-5.40); Red Cell Distribution Width 12.8 % (11.5-17.5); Red Cell Distribution Width-SD 48.5 fL; White Blood Count 7.6 K/mm3 (4.8-10.8)
[2024-07-09 17:50] LABS: Alanine Aminotransferase 12 U/L (12-78); Albumin Level 4.1 g/dl (3.5-5.0); Albumin/Globulin Ratio 1.7 (1.1-1.8); Alkaline Phosphatase 79 U/L (38-126); Aspartate Amino Transferase 29 U/L (14-36); Bilirubin,Total 0.5 mg/dl (0.2-1.3); Blood Urea Nitrogen 11 mg/dl (7-17); Calcium 9.1 mg/dl (8.4-10.2); Carbon Dioxide 27 mmol/L (22.0-30.0); Chloride 105 mmol/L (98-107); Chol/HDL Ratio 2.2 (1-3.5); Cholesterol 187 mg/dl (140-200); Estimated Glomerular Filt Rate 101 ml/min (>60); GFR (African American) 122 ML/MIN (>60); Globulin 2.4 g/dL (1.3-3.2); Glucose 78 mg/dl (74-100); HDL Cholesterol 84 mg/dl (40-60); Sodium 137 mmol/L (136-145); Total Protein,Serum 6.5 g/dl (6.3-8.2); Triglycerides 153 mg/dl (30-150); VLDL Cholesterol 31 mg/dL (0-40)
[2024-07-09 17:56] LABS: Anion Gap 9.1 mEq/L (5-15); Potassium 4.1 mmoL/L (3.5-5.1)
[2024-07-09 18:02] LABS: Direct LDL Cholesterol 85.06 mg/dL (100-129)
[2024-07-09 18:08] LABS: 25-OH Vitamin D, Total 45.6 ng/mL (30-100)
[2024-07-09 18:23] LABS: Thyroid Stimulating Hormone 1.46 uIU/mL (0.465-4.68)
[2024-07-09 19:05] LABS: Hemoglobin A1C 5.1 % (4.0-6.0)
== END 2024-07-09 23:59 | disposition home or self-care (01) ==
LOC: LAB 15:31
PROVIDERS: PCP Family Medicine; Visit Provider Family Medicine
DX: Z00.00 Encounter for general adult medical examination without abnormal findings (principal); F41.9 Anxiety disorder, unspecified
CPT/HCPCS: 36415; 80053; 80061; 82306; 83036; 84443; 85025

== ENCOUNTER 2024-07-17 09:29 | Outpatient (CLI) | payer OTHER, SELFPAY ==
--- NOTE | 2024-07-17 09:30 | FL_ITS ---
FINAL REPORT CLINICAL HISTORY: Previous SBO FINDINGS: SMALL BOWEL FOLLOW THROUGH HISTORY: Diffuse abdominal pain. History of previous bowel obstruction. PROCEDURE: The patient ingested barium. Spot and overhead films were obtained. FINDINGS: The patient registrar film is unremarkable. The transit time to the colon is normal. The mucosal fold pattern is normal. The terminal ileum appears unremarkable. IMPRESSION: Normal small bowel follow-through. Films reviewed , interpreted and dictated by Dr. Lanie Gomez. Transcribed by Aleksey Kaiser PA-C. Reviewed, Interpreted and Dictated by Lanie Gomez MD Transcribed by JUANJOSE Simpson Authenticated and [facility]
--- OUTSIDE RECORDS SUMMARY | 2024-07-17 09:31 | XMS_ITS | Data Portability ---
Author Organization [facility] - [place] & URBAN Sousa ADMIN Address [address] [place] [id number] Assessment Encounter Date Assessment Date Assessment LastModified by Organization Details LastModified Time 07/31/2023 07/31/2023 63-year-old female with what sounds to have been a partial small bowel obstruction at [facility] recently. She has completely recovered. She states she was referred for advice regarding prevention of future episodes. -I have recommended she implement a low fiber diet, avoiding uncooked vegetables when possible. -I have recommended she start Miralax once every 2-3 days to keep stools soft. I have counseled that mild loose stools are permissible -I have recommended that with recurrence of symptoms, she implement a clear liquid diet and seek care in her local ED. -Consider referral for lysis of adhesions if she develops recurrence. [email or web address] Not available 07/31/2023 13:53:05 Plan of Treatment Reminders Order Date Submit Date Provider Last Modified By Organization Details Last Modified Time Details Appointments None recorded. Lab None recorded. Referral None recorded. Procedures None recorded. Surgeries None recorded. Imaging None recorded. Medication Orders Miralax 17 gram/dose oral powder 024 024 [facility] [address] [place], [address], 13:44:14 Patient TargetsNo targets recorded. Patient Instructions Encounter Date Encounter Id Patient Instructions Last Modified By Organization Details Last Modified Time 07/31/2023 [id number] low-fiber diet: care instructions [email or web address] Not available 07/31/2023 13:44:07 Reason for Referral None Reported. Problems Name Problem SNOMED Code Status Onset Date Resolution Date Notes Provider Name and Address Organization Details Recorded Time History of small bowel obstructio n [id number] 78433 Active 2023 Abdon De Guzman PA-C [address] [place], [address] , [facility] & [place] 4 13:43:24 Problem Notes None recorded. Medical Equipment None Reported. Allergies Allergen ID Allergen Name Allergen Category Reaction Reaction Severity Criticality Documentation Date Start Date Code Code System Note Provider Name and Address Organization Details Recorded Time 546083 Product containin g penicilli n (product) medicatio n Not available Not available Not available 07/31/2023 21704 8001 SNOMED Margot Molina [facility] & [place] 4 13:21:07 Medications Name Sig Start Date Stop Date Status Note LastModified by Organization Details LastModified Time Miralax 17 gram/dose oral powder Dissolve 1 capful (17 g) in 8 oz of liquid and drink once daily as needed, 30 days 024 active Not Available Not Available Not Avai lable Vitals Date Recorded Body weight Body mass index (BMI) Body height Body temperature Heart rate Heart rate Oxygen saturation Oxygen saturation in Arterial blood by Pulse oximetry Systolic blood pressure Diastolic blood pressure Provider Name and Address Organization Details Last Updated DateTime 4 45542.9 4 g 22.9 kg/m2 162.56 cm 97.9 [degF] 69 /min 69 /min 96 % 96 % 132 mm[Hg] 80 mm[Hg] Margot Molina [facility] & [place] 4 13:21:32 Social History None recorded. Functional Status None recorded. Mental Status None recorded. Family History Nothing Reported. Medical History No medical history recorded. Gynecological HistoryNo gynecological history recorded. Obstetrics History GPAL:G 0 P 0 0 0 0 Past Encounters Encounter ID Performer Location Encounter Start Date Encounter Closed Date Diagnosis/Indication Diagnosis SNOMED-CT Code Diagnosis ICD10 Code Diagnosis Note [id number] Abdon De Guzman PA-C [facility] [address] [place] [address] 07/31/2023 13:13:10 07/31/2023 14:42:44 History of small bowel obstruction [id number] Z87.19 Health Concerns Section Related Observation LastModified by Organization Detai ls LastModified Time None Recorded Concern Status LastModified by Organization Details LastModified Time None Recorded Advance Directives Directive None Recorded Payers Insurance Date Sequence Insurance Name Policy Number Policy Villanueva Covered Member ID Villanueva Member ID Guarantor Name 08/31/2023 1 [place] [id number] Ana Vazquez [id number] Notes Date Note Type Note Provider Name and Address Organization Details Recorded Time 07/31/2023 text/html Ms. Vazquez is a very pleasant 63-year-old female with history of breast cancer s/p radiation therapy and resection in 2006, degenerative disc disease, numerous colon polyps, and hyper tension who was referred by Jenni Hanley APRN for evaluation of recent partial small bowel obstruction. She states that she has a remote history of tubal ligation as well as a complicated open appendectomy in 2013. She states she experienced a partial bowel obstruction 4 months ago and again last weekend. She developed acute vomiting and abdominal distension She reports undergoing CT imaging in the ED at [facility] that indicated a kink . She was passing gas and stool so she was discharged. She is currently feeling well and denies any recurrence since leaving [facility]. She states that she is up-to-date on colonoscopy but had 21 polyps on a previous colonoscopy, 17 of which were adenomatous. She states she is due for repeat colonoscopy this year and plans to have this with Dr. Rene. Abdon De Guzman PA-C [address] , [place], [address], [facility] - [place] & [place] 07/31/2023 13:53:16 OBGyn Episode No OBEpisode recorded.
[2024-07-17] MEDS: BARIUM SULFATE(LIQUID E-Z-PAQUE);355ML BOTTLE 355 ML PO (09:54)
== END 2024-07-17 23:59 | disposition home or self-care (01) ==
LOC: RAD 09:30
PROVIDERS: PCP Family Medicine; Visit Provider Nurse Practitioner Family
DX: K56.609 Unspecified intestinal obstruction, unspecified as to partial versus complete obstruction (principal); R19.7 Diarrhea, unspecified; Z86.0101 Personal history of adenomatous and serrated colon polyps
CPT/HCPCS: 74250

== ENCOUNTER 2024-07-20 09:21 | Outpatient (CLI) | payer OTHER, SELFPAY ==
--- OUTSIDE RECORDS SUMMARY | 2024-07-20 09:25 | XMS_ITS | Data Portability ---
Author Organization [facility] - [place] & URB[facility] Sousa ADMIN Address [address] [place] [address] Assessment Encounter Date Assessment Date Assessment LastModified by Organization Details LastModified Time 07/31/2023 07/31/2023 63-year-old female with what sounds to have been a partial small bowel obstruction at [facility] recently. She has completely recovered. She [...] lysis of adhesions if she develops recurrence. [email or web address] Not available 07/31/2023 13:53:05 Plan of Treatment Reminders Order Date Submit Date Provider Last Modified By Organization Details Last Modified Time Details Appointments None recorded. Lab None recorded. Referral None recorded. Procedures None recorded. Surgeries None recorded. Imaging None recorded. Medication Orders Miralax 17 gram/dose oral powder [address] [facility] [address] [place], [address], 13:44:14 Patient TargetsNo targets recorded. Patient Instructions Encounter Date Encounter Id Patient Instructions Last Modified By Organization Details Last Modified Time 07/31/2023 [id number] low-fiber diet: care instructions [email or web address] Not available 07/31/2023 13:44:07 Reason for Referral None Reported. Problems Name Problem SNOMED Code Status Onset Date Resolution Date Notes Provider Name and Address Organization Details Recorded Time History of small bowel obstructio n [id number] 74513 Active 2023 Abdon De Guzman PA-C [address] [place], [address] , [facility] & [place] 4 13:43:24 Problem Notes None recorded. Medical Equipment None Reported. Allergies Allergen ID Allergen Name Allergen Category Reaction Reaction Severity Criticality Documentation Date Start Date Code Code System Note Provider Name and Address Organization Details Recorded Time 446460 Product containin g penicilli n (product) medicatio n Not available Not available Not available 07/31/2023 86323 8001 SNOMED Margot Molina [facility] & [place] 4 13:21:07 Medications Name Sig Start Date [...] Address Organization Details Last Updated DateTime 4 14101.9 4 g 22.9 kg/m2 162.56 cm 97.9 [degF] 69 /min 69 /min 96 % 96 % 132 mm[Hg] 80 mm[Hg] Margot Molina [facility] & [place] 4 13:21:32 Social History None recorded. Functional Status None recorded. Mental Status None recorded. Family History Nothing Reported. Medical History No medical history recorded. Gynecological HistoryNo gynecological history recorded. Obstetrics History GPAL:G 0 P 0 0 0 0 Past Encounters Encounter ID Performer Location Encounter Start Date Encounter Closed Date Diagnosis/Indication Diagnosis SNOMED-CT Code Diagnosis ICD10 Code Diagnosis Note [id number] Abdon De Guzman PA-C [facility] [address] [facility] [address] [place] [address] 07/31/2023 13:13:10 07/31/2023 14:42:44 History of small bowel obstruction [id number] Z87.19 Health Concerns Section Related Observation LastModified by Organization Detai ls LastModified Time None Recorded Concern Status LastModified by Organization Details LastModified Time None Recorded Advance Directives Directive None Recorded Payers Insurance Date Sequence Insurance Name Policy Number Policy Villanueva Covered Member ID Villanueva Member ID Guarantor Name 08/31/2023 1 [place] [id number] Ana Vazquez [id number] Notes Date Note Type Note Provider [...] undergoing CT imaging in the ED at [facility] that indicated a kink . She was passing gas and stool so she was discharged. She is currently feeling well and denies any recurrence since leaving [facility]. She states that she is up-to-date on colonoscopy but had 21 polyps on a previous colonoscopy, 17 of which were adenomatous. She states she is due for repeat colonoscopy this year and plans to have this with Dr. Rene. Abdon De Guzman PA-C [address] , [place], [address], [facility] - [place] & [place] 07/31/2023 13:53:16 OBGyn Episode No OBEpisode recorded.
--- NOTE | 2024-07-20 09:30 | XR_ITS ---
FINAL REPORT TECHNIQUE: Bone densitometry calculations of the lumbar spine and bilateral hips were obtained. CLINICAL HISTORY: Postmenopausal COMPARISON: None FINDINGS: Using L1-4, the bone mineral density of the spine is 0.904 g/cm2, corresponding to T-score of -1.3. Using the left hip, the bone mineral density of the femoral neck is 0.792 g/cm2, corresponding to a T-score of -1.2. Using the right hip, the bone mineral density of the femoral neck is 0.692 g/cm?, corresponding to a T-score of -1.4. NOTE: T-score: Standard deviation compared with peak bone mass of young adult mean. *Following the recommendations of the International Society of Bone densitometry, classification of hip BMD is based on the lower of two T-scores; total hip or femoral neck. IMPRESSION: Diminished bone mineral density of the lumbar spine and bilateral hips consistent with osteopenia. Reviewed, Interpreted and Dictated by Mikhail Peter MD Transcribed by Rachel De Guzman Authenticated and . [facility]
== END 2024-07-20 23:59 | disposition home or self-care (01) ==
LOC: RAD 09:21
PROVIDERS: PCP Family Medicine; Visit Provider Obstetrics & Gynecology
DX: M85.852 Other specified disorders of bone density and structure, left thigh (principal); M85.851 Other specified disorders of bone density and structure, right thigh; M85.88 Other specified disorders of bone density and structure, other site; Z78.0 Asymptomatic menopausal state
CPT/HCPCS: 77080

== ENCOUNTER 2024-07-23 11:00 | Outpatient (CLI) | payer OTHER, SELFPAY ==
[2024-07-23 12:18] LABS: Calcium 9.2 mg/dl (8.4-10.2)
--- OUTSIDE RECORDS SUMMARY | 2024-07-23 13:07 | XMS_ITS | Data Portability ---
Author Organization [facility] - [place] & URBAN Sousa ADMIN Address [address] [place] [address] Assessment Encounter Date Assessment Date Assessment LastModified by Organization Details LastModified Time 07/31/2023 07/31/2023 63-year-old female with what sounds to have been a partial small bowel obstruction at [facility] recently. She has completely recovered. She states [...] lysis of adhesions if she develops recurrence. [email or web address] Not available 07/31/2023 13:53:05 Plan of Treatment Reminders Order Date Submit Date Provider Last Modified By Organization Details Last Modified Time Details Appointments None recorded. Lab None recorded. Referral None recorded. Procedures None recorded. Surgeries None recorded. Imaging None recorded. Medication Orders Miralax 17 gram/dose oral powder 024 024 [facility] [address] [place], [address], 13:44:14 Patient TargetsNo targets recorded. Patient Instructions Encounter Date Encounter Id Patient Instructions Last Modified By Organization Details Last Modified Time 07/31/2023 [id number] low-fiber diet: care instructions Not available 07/31/2023 13:44:07 Reason for Referral None Reported. Problems Name Problem SNOMED Code Status Onset Date Resolution Date Notes Provider Name and Address Organization Details Recorded Time History of small bowel obstructio n [id number] 05069 Active 2023 Abdon De Guzman PA-C [address] [place], [address] , [facility] & [place] 4 13:43:24 Problem Notes None recorded. Medical Equipment None Reported. Allergies Allergen ID Allergen Name Allergen Category Reaction Reaction Severity Criticality Documentation Date Start Date Code Code System Note Provider Name and Address Organization Details Recorded Time 407050 Product containin g penicilli n (product) medicatio n Not available Not available Not available 07/31/2023 85704 8001 SNOMED Margot Molina [facility] & [place] 4 13:21:07 Medications Name Sig Start Date [...] Address Organization Details Last Updated DateTime 4 60032.9 4 g 22.9 kg/m2 162.56 cm 97.9 [degF] 69 /min 69 /min 96 % 96 % 132 mm[Hg] 80 mm[Hg] Margot Molina [facility] & [place] 4 13:21:32 Social History None recorded. Functional Status None recorded. Mental Status None recorded. Family History Nothing Reported. Medical History No medical history recorded. Gynecological HistoryNo gynecological history recorded. Obstetrics History GPAL:G 0 P 0 0 0 0 Past Encounters Encounter ID Performer Location Encounter Start Date Encounter Closed Date Diagnosis/Indication Diagnosis SNOMED-CT Code Diagnosis ICD10 Code Diagnosis Note [id number] Abdon De Guzman PA-C [facility] [address] [facility] [address] [place] [address] 07/31/2023 13:13:10 07/31/2023 14:42:44 History of small bowel obstruction [id number] Z87.19 Health Concerns Section Related Observation LastModified by Organization Detai ls LastModified Time None Recorded Concern Status LastModified by Organization Details LastModified Time None Recorded Advance Directives Directive None Recorded Payers Insurance Date Sequence Insurance Name Policy Number Policy Villanueva Covered Member ID Villanueva Member ID Guarantor Name 08/31/2023 1 [place] [id number] Ana Vazquez [id number] Notes Date Note Type Note Provider [...] undergoing CT imaging in the ED at [facility] that indicated a kink . She was passing gas and stool so she was discharged. She is currently feeling well and denies any recurrence since leaving [facility]. She states that she is up-to-date on colonoscopy but had 21 polyps on a previous colonoscopy, 17 of which were adenomatous. She states she is due for repeat colonoscopy this year and plans to have this with Dr. Rene. Abdon De Guzman PA-C [address] , [place], [address], [facility] - [place] & [place] 07/31/2023 13:53:16 OBGyn Episode No OBEpisode recorded.
[2024-07-28 23:09] LABS: 1,25 Dihydroxy Vitamin D 60 pg/mL (.); 1,25-Dihydroxy, Vitamin D-2 <10 pg/mL (.); 1,25-Dihydroxy, Vitamin D-3 60 pg/mL (.)
== END 2024-07-23 23:59 | disposition home or self-care (01) ==
LOC: LAB 11:00
PROVIDERS: PCP Family Medicine; Visit Provider Obstetrics & Gynecology
DX: M85.80 Other specified disorders of bone density and structure, unspecified site (principal)
CPT/HCPCS: 36415; 82310; 82652

== ENCOUNTER 2024-08-03 13:50 | Outpatient (CLI) | payer OTHER, SELFPAY ==
--- NOTE | 2024-08-03 14:00 | MM_ITS ---
PROCEDURE INFORMATION: Exam: MG Bilateral Screening 3D Mammography Exam date and time: 08/03/2024 1:59 PM Age: 64 years old Clinical indication: Screening exam. Personal history of right breast cancer status post lumpectomy. TECHNIQUE: Imaging protocol: Bilateral Screening tomosynthesis and 2D mammography including computer-aided detection (CAD) when performed. COMPARISON: 1. MG DIAG MAMMO W CAD BILAT 09/10/2022 9:47 AM 2. MG DIAG MAMMO W CAD LT 03/01/2022 9:39 AM FINDINGS: MAMMOGRAPHY: Breast composition: The breasts are heterogeneously dense, which may obscure small masses. Mass: No suspicious masses. Architectural distortion: Postsurgical changes redemonstrated right breast. Calcifications: No suspicious calcifications. Asymmetric density: None. Skin thickening: None. Axillary adenopathy: None. IMPRESSION: No mammographic evidence of malignancy. Annual screening is recommended unless otherwise clinically indicated. ASSESSMENT: BI-RADS Category 2: Benign.
== END 2024-08-03 23:59 | disposition home or self-care (01) ==
LOC: RAD 13:50
PROVIDERS: PCP Family Medicine; Visit Provider Family Medicine
DX: Z12.31 Encounter for screening mammogram for malignant neoplasm of breast (principal); R92.333 Mammographic heterogeneous density, bilateral breasts; Z85.3 Personal history of malignant neoplasm of breast
CPT/HCPCS: 77063; 77067

== ENCOUNTER 2024-09-16 12:02 | Day surgery (SDC) | payer OTHER, SELFPAY ==
[2024-09-09 13:35] VITALS: BMI 22.3
--- NOTE | 2024-09-16 10:55 | EXP.HP ---
History of Present Illness *Admission Date: 09/16/24 *Reason for visit:: Diarrhea, abdominal pain and personal history of adenomatous colon polyps *History of present illness: Mrs. Vazquez is a 64-year-old female with chronic diarrhea and she gets watery stools 3 times before lunch. She does have a lot of bloating and has had some abdominal discomfort. The examination is deemed medically necessary for diagnostic colonoscopy. The patient has been seen, interviewed and examined prior to the procedure by both myself and the anesthesia provider. [facility] Disclaimer: The information contained in this section may have been updated after the patient was seen, as this information can be updated by other users. Medical History (Updated 09/16/24 @ 13:54 by Julio Sutherland II, MD) Osteopenia Small bowel obstruction Sleep apnea Allergies Breast cancer History of colon polyps Shoulder pain Chest pain Hx of malignant neoplasm of breast Insomnia Hypertension Surgical History History of colonoscopy History of lumpectomy History of surgery on arm H/O tubal ligation History of appendectomy Family History Other Family history of cancer Family history of diabetes mellitus type II Family history of myocardial infarction Social History (Updated 09/16/24 @ 13:18 by Marilee Aldrich RN) Smoking Status: Former smoker tobacco type: e-cigarettes alcohol intake: current alcohol intake frequency: holidays/special occasions only substance use type: denies use current occupational status: retired Travel in the last 8 weeks?: None household members: spouse 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 current occupational exposures/hazards: Yes caffeine: Yes Have you lived/traveled outside [place] in past 30 days?: No Contact w/someone who lives/traveled outside [place] past 30 days?: No Exposure to someone with infectious disease in past 14 days?: No Do you have a fever (greater than 100.4 F or 38 C)?: No Have you tested positive for COVID-19?: No Exposed to someone with COVID-19 in past 14 days?: No Do you have a sore throat?: No Do you have a cough?: No Do you have any weakness?: No Are you experiencing any nausea/vomitting?: No Do you have any diarrhea?: No Are you experiencing any unusual bleeding?: No Do you have any muscle aches/pain?: No Do you have any abdominal pain?: No Are you experiencing loss of taste or smell?: No Other Medical History Have you received the Flu Vaccine for this season: No Have you received the Pneumonia Vaccine: No Review of Systems Review of Systems Review of systems (narrative): Negative *Cardiovascular Comments: Negative *Gastrointestinal Comments: Negative *Genitourinary Comments: Negative *Musculoskeletal Comments: Negative *Neurologic Comments: Negative Meds Home Medications and Allergies Home Medications ?Medication ?Instructions ?Recorded ?Confirmed ?Type epinephrine 0.3 mg/0.3 mL 0.3 mg (0.3 mL) IM Q5-15M PRN 07/26/20 09/16/24 Rx injection, auto-injector anaphylaxis #2 ea aspirin 81 mg tablet,delayed 81 mg PO DAILY Heartburn 02/13/22 09/16/24 History release (Adult Low Dose Aspirin) fluticasone propionate 50 1 spray intranasal DAILY PRN 05/08/23 09/16/24 Rx mcg/actuation nasal ALLERGIES #16 grams spray,suspension trazodone 100 mg tablet See Rx Instructions .Route 08/16/23 09/16/24 Rx .COMPLEX #90 tabs metoprolol tartrate 50 mg tablet See Rx Instructions .Route 02/19/24 09/16/24 Rx .COMPLEX #180 tabs cetirizine 10 mg tablet (Allergy See Rx Instructions .Route 03/27/24 09/16/24 Rx Relief (cetirizine)) .COMPLEX #90 tabs amlodipine 10 mg tablet See Rx Instructions .Route 07/07/24 09/16/24 Rx .COMPLEX #90 tabs sertraline 100 mg tablet See Rx Instructions .Route 08/03/24 09/16/24 Rx .COMPLEX #90 tabs montelukast 10 mg tablet See Rx Instructions .Route 08/24/24 09/16/24 Rx .COMPLEX #90 tabs sodium,potassium,mag sulfates 17.5 See Rx Instructions PO .COMPLEX 09/03/24 09/16/24 Rx gram-3.13 gram-1.6 gram oral soln #354 mL (Suprep Bowel Prep Kit) cholecalciferol (vitamin D3) 10 10 mcg PO DAILY 09/16/24 09/16/24 History mcg (400 unit) capsule (Vitamin D3) New Prescriptions to Start Prescriptions: Allergies Allergy/AdvReac Type Severity Reaction Status Date / Time Penicillins Allergy Rash Verified 09/16/24 13:11 venom-wasp AdvReac Severe Anaphylaxis Verified 09/16/24 13:11 lisinopril AdvReac Intermediate Cough Verified 09/16/24 13:11 Exam *Routine HEENT Exam Head: Present normocephalic Eye: Present EOMI and PERRL ENT: Present mucous membranes moist *Routine Neck Exam Neck: Present supple *Routine Respiratory Exam Respiratory: Present CTA bilaterally *Routine Cardiovascular Exam Cardiovascular: Present RRR *Routine Abdominal Exam Abdominal: Present soft and normoactive bowel sounds; Absent tenderness *Routine Rectal Exam Rectal:: deferred *Routine Genitalia Exam Genitalia:: deferred *Routine Extremities Exam Extremities: Absent cyanosis, clubbing or edema *Routine Skin Exam Skin: Present warm; Absent rash *Routine Neurological Exam Neurological: Present alert and oriented X3 Assessment and Plan *Assessment and plan (1) History of adenomatous polyp of colon: Status: Acute Category: Medical Code(s): Z86.0101 - Personal history of adenomatous and serrated colon polyps (2) Diarrhea: Status: Acute Category: Medical Code(s): R19.7 - Diarrhea, unspecified (3) Small bowel obstruction: Status: Acute Category: Medical Code(s): K56.609 - Unspecified intestinal obstruction, unspecified as to partial versus complete obstruction (4) Bloating: Status: Acute Category: Medical Code(s): R14.0 - Abdominal distension (gaseous) Plan A/P: 1. Diarrhea with bloating is the preprocedural diagnosis. The patient also has a history of adenomatous colon polyps. The patient will be anesthetized/sedated using MAC sedation. The patient has been seen and examined. Cardiac and lung assessment prior to the examination is stable. Proceed with planned diagnostic colonoscopy.
[2024-09-16 13:09] VITALS: BP 100/73; PULSE 71; RESP 18; TEMP 36.6; O2SAT 97
[2024-09-16] MEDS: LACTATED RINGERS 1000ML 1,000 ML 50 ML IV (13:33)
--- NOTE | 2024-09-16 13:40 | P.PNANES_ITS ---
[facility] Disclaimer: The information contained in this section may have been updated after the patient was seen, as this information can be updated by other users. Medical History Osteopenia Small bowel obstruction Sleep apnea Allergies Breast cancer History of colon polyps Shoulder pain Chest pain Hx of malignant neoplasm of breast Insomnia Hypertension Surgical History History of colonoscopy History of lumpectomy History of surgery on arm H/O tubal ligation History of appendectomy Family History Other Family history of cancer Family history of diabetes mellitus type II Family history of myocardial infarction Social History (Updated 09/16/24 @ 13:18 by Marilee Aldrich RN) Smoking Status: Former smoker tobacco type: e-cigarettes alcohol intake: current alcohol intake frequency: holidays/special occasions only substance use type: denies use current occupational status: retired Travel in the last 8 weeks?: None household members: spouse 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 current occupational exposures/hazards: Yes caffeine: Yes Have you lived/traveled outside [place] in past 30 days?: No Contact w/someone who lives/traveled outside [place] past 30 days?: No Exposure to someone with infectious disease in past 14 days?: No Do you have a fever (greater than 100.4 F or 38 C)?: No Have you tested positive for COVID-19?: No Exposed to someone with COVID-19 in past 14 days?: No Do you have a sore throat?: No Do you have a cough?: No Do you have any weakness?: No Are you experiencing any nausea/vomitting?: No Do you have any diarrhea?: No Are you experiencing any unusual bleeding?: No Do you have any muscle aches/pain?: No Do you have any abdominal pain?: No Are you experiencing loss of taste or smell?: No [facility] Anesthesia Checklist Patient Identification Patient Identification: Arm Band Structural Data Admitted From: Home Planned Operative Procedure/s: Colonoscopy Consent for Planned Operative Procedure(s) Verified: Yes Verified Documents: Surgical Consent and History and Physical NPO Status Verified Time NPO: 09:45 (finished prep) Additional verifications Anesthesia Reactions: No Hx Blood Transfusions: No Blood Transfusion Reaction: No Airway Assessment Mallampati Score:: Class II C-Spine Mobility Assessed: Yes TMJ Mobility Assessed: Yes Dentition: Dentures-good fit (removed) Neurological Assessment Level of Consciousness: Awake, Alert and Appropriate Anesthesia Plan Anesthesia Risk discussed: Yes Anesthesia Plan: Verified ASA Class: II Anesthesia Type: MAC
--- NOTE | 2024-09-16 13:54 | P.PCN_ITS ---
[facility] Procedure Note Date: 09/16/24 Time: 14:17 Procedure Note:: Colonoscopy Procedure Report: Colonoscopy with cold snare polypectomy and cold biopsies Endoscopist: Julio Sutherland II, MD Referring physician: LETTY Corley Date of Procedure: September 16, 2024 Equipment: Olympus [id number] adult colonoscope Sedation: MAC sedation Indication: Mrs. Vazquez is a 64-year-old female who is here for diagnostic colonoscopy secondary to chronic diarrhea and bloating. The patient was having s ymptoms of nausea, vomiting and abdominal pain and much of this has resolved. Her CAT scan showed a possible ileus versus partial small bowel obstruction. There is a possible lipoma of the ileocecal valve. The patient does have a personal history of adenomatous colon polyps. Her colonoscopy in 2019 revealed 18 polyps 9 of which were serrated adenomas and the remainder were hyperplastic polyps. Her last colonoscopy (Nelson Rene MD) in February 2022 revealed 5 polyps (small serrated adenoma x 1 and hyperplastic polyps x 4) which were removed. The patient reports no rectal bleeding or weight loss. She does state that her maternal aunt had colon cancer. Procedure: Prior to the procedure, a history and physical exam was performed, and patient's medications and allergies were reviewed. The risks, benefits and alternatives of the sedation and procedure were discussed with the patient. All questions were answered and informed consent was obtained. The patient was brought to the procedure room. Patient identification and proposed procedure were verified by the physician and the nurse. The patient was placed in a left lateral decubitus position and the scope was passed under direct vision. Throughout the procedure, the patient's blood pressure, pulse, and oxygen saturations were monitored continuously. The colonoscopy was accomplished without difficulty. The patient tolerated the procedure well. Findings: On digital rectal examination there was normal rectal tone. There were no external hemorrhoids. The colonoscope was introduced through the anal canal to the rectum and advanced to the cecum. The ileocecal valve and appendiceal orifice were identified. The scope was advanced a short distance into the ileum which appeared grossly normal. The scope was then withdrawn into the colon. There was no stricturing at the ileocecal valve but there was a lipomatous ileocecal valve. There were 5 colonic polyps (ascending x 1 (4 mm), transverse x 2 (3 and 5 mm) and rectum x 2 (3 and 5 mm)). These were all removed via cold snare polypectomy. Random cold biopsies were taken from the right colon x 4 to rule out microscopic colitis. The remaining cecum, ascending and transverse colon and mucosa were grossly normal. There were scattered diverticuli throughout the descending and sigmoid colon (LEFT colon). There was sigmoid pericolonic adhesions. The rectum itself was normal. Upon retroflexion within the rectum there were grade 1-2 internal hemorrhoids. The preparation was excellent throughout with [place] Preparation Score of 9. The cecal time was 14 minutes. Impression: 1. Diminutive colonic polyps x 5 2. Extensive left-sided diverticulosis with evidence of sigmoid pericolonic adhesions 3. Grade 1-2 internal hemorrhoids Plan: I will follow-up the polyp histology and recommend repeat surveillance colonoscopy again in 3 to 5 years based upon the pathology. I will follow-up the random biopsies to rule out microscopic colitis. If the biopsies are normal, I would continue FiberCon and consider addition of Viberzi.
[2024-09-16 14:21] VITALS: BP 127/69; PULSE 67; RESP 18; TEMP 36.6; O2SAT 97
[2024-09-16 14:31] VITALS: BP 135/69; PULSE 65; O2SAT 97
[2024-09-16 14:41] VITALS: BP 128/65; PULSE 64; O2SAT 96
[2024-09-16 14:51] VITALS: BP 150/83; PULSE 63; RESP 20; O2SAT 96
== END 2024-09-16 14:51 | disposition home or self-care (01) ==
PROVIDERS: PCP Family Medicine; Visit Provider Internal Medicine Gastroenterology
PROC: 0DJD8ZZ Inspection of Lower Intestinal Tract, Via Natural or Artificial Opening Endoscopic (ICD-10-PCS; CPT 45378; principal; 2024-09-16 13:30)
DX: D12.2 Benign neoplasm of ascending colon (principal); D12.8 Benign neoplasm of rectum; K64.0 First degree hemorrhoids; K57.90 Diverticulosis of intestine, part unspecified, without perforation or abscess without bleeding; K64.1 Second degree hemorrhoids; I10 Essential (primary) hypertension; Z86.0101 Personal history of adenomatous and serrated colon polyps; Z87.891 Personal history of nicotine dependence; Z88.1 Allergy status to other antibiotic agents; Z88.8 Allergy status to other drugs, medicaments and biological substances; Z79.899 Other long term (current) drug therapy; Z79.82 Long term (current) use of aspirin
CPT/HCPCS: 45380; 45385; J2003; J2704; J7120